=== PATIENT | female | born 1950 | race Caucasian/White ===

== ENCOUNTER 2022-08-29 16:58 | Emergency (ER) | payer MEDICARE, BC, SELFPAY ==
[2022-08-29 17:05] VITALS: BP 162/89; PULSE 70; RESP 16; TEMP 36.7; O2SAT 95; BMI 32.6
--- NOTE | 2022-08-29 17:45 | ED.GENADULT ---
HPI - General Adult General Chief complaint: Hip Injury/Pain Stated complaint: Trouble walking Time Seen by Provider: 08/29/22 17:27 History of Present Illness HPI narrative: 71-year-old woman presenting to the emergency department with complaint of pain down her right leg since last night. She went to the chiropractor this morning and temporarily felt better but pain has escalated tremendously since then. She describes it as a pulling and intense pain goes down her buttock seems to wrap around her hip and to the anterior thigh somewhat to the medial leg and down to the ankle does not touch her toes apparently. No loss of sensation. No recent injury. She was raking in the warm weather maybe 10 days ago but does not recall any particular injury. She does have a history of a back problem of some sort but does not recall details or imaging. Otherwise was seen for osteoarthritis of her right knee. She does not describe pain necessarily with rotation of the hip now in the right side. Pain is terrible when she goes to stand and bears weight. No rash redness or swelling noted. No focal weakness necessarily as she notes that she is able to bear weight. Unable to take aspirin or ibuprofen at least orally as tends to cause stomach burning. Same for naproxen I believe on my questioning. She does note that Dilaudid made her itch like crazy when was given perioperatively. She is desperate for some more immediate relief of pain as I discuss options. Related Data Home Medications Medication Instructions Recorded Confirmed ascorbic acid (vitamin C) 1,000 mg 1 g PO DAILY 02/10/22 08/29/22 tablet biotin 5 mg capsule mg PO DAILY 02/10/22 02/10/22 cholecalciferol (vitamin D3) 50 50 mcg PO DAILY 02/10/22 08/29/22 mcg (2,000 unit) tablet cyanocobalamin (vitamin B-12) 500 5,000 mcg PO DAILY 02/10/22 08/29/22 mcg tablet fluoxetine 20 mg tablet 20 mg PO 02/10/22 02/10/22 glucosamine-chondroitin 500 mg-400 3 cap PO BID 02/10/22 08/29/22 mg capsule hydroxyzine pamoate 25 mg capsule 25 mg PO PRN 02/10/22 02/10/22 naproxen sodium 220 mg capsule 220 mg PO BID 02/10/22 08/29/22 nortriptyline 25 mg capsule mg PO .Bedtime 02/10/22 02/10/22 omeprazole 20 mg capsule,delayed mg PO DAILY 02/10/22 02/10/22 release polyethylene glycol 3350 17 g PO DAILY 02/10/22 02/10/22 gram/dose oral powder losartan 100 mg tablet mg PO 02/13/22 02/13/22 hydrochlorothiazide 25 mg tablet 25 mg PO DAILY 08/29/22 08/29/22 Allergies Allergy/AdvReac Type Severity Reaction Status Date / Time Iodinated Contrast Media Allergy Mild Hives Verified 08/29/22 17:12 metoprolol Allergy Mild Agitated Verified 08/29/22 17:12 aspirin Allergy Verified 08/29/22 17:12 eszopiclone Allergy Verified 08/29/22 17:12 gadodiamide Allergy Verified 08/29/22 17:12 hydrocodone Allergy Verified 08/29/22 17:12 hydromorphone Allergy Verified 08/29/22 17:12 Review of Systems Status of ROS: Reports: 6 or more systems reviewed and unremarkable except as noted in History and below [facility] Medical History Anemia ?D64.9 - Anemia, unspecified (ICD-10) Gastroesophageal reflux disease ?K21.9 - Gastro-esophageal reflux disease without esophagitis (ICD-10) Hypertension ?I10 - Essential (primary) hypertension (ICD-10) Liver problem ?K76.9 - Liver disease, unspecified (ICD-10) Rheumatic fever ?I00 - Rheumatic fever without heart involvement (ICD-10) Surgical History H/O arthroscopy of right knee ?Z98.890 - Other specified postprocedural states (ICD-10) History of cholecystectomy ?Z90.49 - Acquired absence of other specified parts of digestive tract (ICD-10) History of colon resection ?Z90.49 - Acquired absence of other specified parts of digestive tract (ICD-10) History of hysterectomy ?Z90.710 - Acquired absence of both cervix and uterus (ICD-10) S/P left knee arthroscopy (07/08/03) ?Z98.890 - Other specified postprocedural states (ICD-10) Family History Other High blood pressure Throat cancer Social History Smoking Status: Never smoker Do you use any of these nicotine containing products: None Second hand tobacco smoke exposure: No How often do you have a drink containing alcohol: never AUDIT-C Alcohol total score: 0 Non-prescribed substance use: denies use Exam Narrative: Exam Narrative: Pleasant. Breathing without difficulty. Clearly uncomfortable wincing grimacing a little in pain. Hunched over a little bit appears to try not to place as much weight on her right buttock area. Skin is warm and dry without evidence of injury. No rash. No extremity edema. She has good strength to resisted extension and flexion at the right knee and dorsiflexion plantar flexion of the ankle. Sensation intact. Does have some pain to palpation of the right SI joint. No piriformis area pain. Internal external rotation of the hip I do not believe exacerbates pain tremendously but any movement of the extremity I think is what is worsening pain in this case. Positive straight leg raise. Const: Vital Signs, click to edit/add: Vital Signs - 24 hr 08/29/22 17:05 Temperature 98.0 F Pulse Rate [Pulse Oximeter] 70 Respiratory Rate 16 Blood Pressure [Ri ght Upper Arm] 162/89 H Pulse Oximetry 95 Oxygen Delivery Me thod Room Air Documenting provider has reviewed patient's vital signs: yes Course Vital Signs Vital signs: Initial Vital Signs Temperature 98.0 F 08/29/22 17:05 Temperature Source Temporal Artery Scan 08/29/22 17:05 Pulse Rate 70 08/29/22 17:05 Respiratory Rate 16 08/29/22 17:05 Blood Pressure 162/89 H 08/29/22 17:05 Blood Pressure Mean 113 H 08/29/22 17:05 Blood Pressure Position Sitting 08/29/22 17:05 Pulse Oximetry 95 08/29/22 17:05 Oxygen Delivery Method Room Air 08/29/22 17:05 Vital Signs Temperature 98.0 F 08/29/22 17:05 Pulse Rate 70 08/29/22 17:05 Respiratory Rate 16 08/29/22 17:05 Blood Pressure 162/89 H 08/29/22 17:05 Pulse Oximetry 95 08/29/22 17:05 Oxygen Delivery Method Room Air 08/29/22 17:05 Temperature 98.0 F 08/29/22 17:05 Pulse Rate 70 08/29/22 17:05 Respiratory Rate 16 08/29/22 17:05 Blood Pressure 162/89 H 08/29/22 17:05 Pulse Oximetry 95 08/29/22 17:05 Oxygen Delivery Method Room Air 08/29/22 17:05 Medical Decision Making MDM Narrative Medical decision making narrative: This does appear to be some radiculopathy/radiculitis from the low back. Has some inflammation of her right SI joint area I did not test fully though given her degree of discomfort. Presumably has some issue there because of left leg osteoarthritic pain. Does not appear to be piriformis syndrome. We discussed options for treatment. It appears that the suppose it allergies to aspirin and naproxen or more related to stomach irritation; Will be giving a shot of ketorolac. Also wanting more immediate relief a shot of fentanyl. Will monitor for itch though I think less likely. Looks like on review of records that hydrocodone and understandably then hydromorphone are listed as allergies and she noted the latter to cause significant itch. Without trauma, and no MRI available, can defer imaging at this time I think. I am anticipating prednisone and Percocet <del>possibly</del> <del>cyclobenzaprine</del> from [facility]. See patient discharge plan Following injections as above is noting some improvement prior to departure. Discharge Plan Discharge Clinical Impression: Acute radicular low back pain, Sacroiliac pain Patient Disposition: Home w/ Parent or Adult Condition: Stable Additional Instructions: See handout for stretches for radicular low back pain (focus on the stretches/exercises for herniated disc; wait on the sacroiliac pain stretches as I do not think that is the majority of your issue here today) take these handouts for review to your primary care follow-up. I would anticipate being seen in physical therapy. Prednisone and Percocet from [facility]. Sorry it appears that you can't take ibuprofen-type medications. I think this could really help. That said, the prednisone is a potent anti-inflammatory. I would call tomorrow to make an appointment to be seen within a weeks time with your primary care provider. Be seen otherwise for uncontrolled pain, new weakness that does not appear to be related to pain, inability to tolerate your medications. Take the prednisone as 60 mg daily for 2 days, 40 mg daily days 3 through 5, 20 mg daily days 6 through 8. Prescriptions: No Action naproxen sodium 220 mg capsule 220 mg PO BID cholecalciferol (vitamin D3) 50 mcg (2,000 unit) tablet 50 mcg PO DAILY hydroxyzine pamoate 25 mg capsule 25 mg PO PRN glucosamine-chondroitin 500-400 mg capsule 3 cap PO BID polyethylene glycol 3350 17 gram/dose powder PO DAILY omeprazole 20 mg capsule,delayed release(DR/EC) PO DAILY fluoxetine 20 mg tablet 20 mg PO cyanocobalamin (vitamin B-12) 500 mcg tablet 5,000 mcg PO DAILY nortriptyline 25 mg capsule PO .Bedtime Rx Instructions: In addition to 10 mg for total 35 mg hs biotin 5 mg capsule PO DAILY ascorbic acid (vitamin C) 1,000 mg tablet 1 g PO DAILY losartan 100 mg tablet PO hydrochlorothiazide 25 mg tablet 25 mg PO DAILY Follow Up/Referrals: Jessica Osman DO [Primary Care Provider] - Stand Alone Forms: [facility] Info Instructions
[2022-08-29] MEDS: fentaNYL 100 MCG/2 ML inj 50 MCG IM (18:07)
[2022-08-29] MEDS: KETOROLAC 60 MG/2 ML inj 45 MG IM (18:08)
== END 2022-08-29 18:38 | disposition home or self-care (01) ==
LOC: ED 18:17
PROVIDERS: Emergency Provider Family Medicine; PCP Family Medicine
DX: M54.16 Radiculopathy, lumbar region (principal); M53.3 Sacrococcygeal disorders, not elsewhere classified
CPT/HCPCS: 96372; 99283; 99284; J1885; J3010

== ENCOUNTER 2022-09-05 14:58 | Outpatient (CLI) | payer MEDICARE, BC, SELFPAY | END 2022-09-05 14:59 | disposition home or self-care (01) | LOC: INJ CL 14:58 | PROVIDERS: PCP Family Medicine; Visit Provider Family Medicine | DX: M54.16 Radiculopathy, lumbar region (principal); M51.26 Other intervertebral disc displacement, lumbar region | CPT/HCPCS: 64483; J1100; Q9966 ==

== ENCOUNTER 2022-09-10 07:23 | Emergency (ER) | payer MEDICARE, BC, SELFPAY ==
[2022-09-10 07:25] VITALS: BP 187/93; PULSE 67; RESP 18; TEMP 36.6; O2SAT 100; BMI 32.6
--- NOTE | 2022-09-10 07:36 | ED.GENADULT ---
HPI - General Adult General Chief complaint: Back Injury/Pain Stated complaint: Hip Pain Time Seen by Provider: 09/10/22 07:25 History of Present Illness HPI narrative: Patient is a 71 white female who had a epidural steroid injection couple days ago Dr. Lai hathaway. She tweaked her back yesterday and has had increasing pain and pain down her right leg. She reports she has an L4-5 lateral disc to the right. No bowel or bladder changes fever chills perineal numbness she is able to walk. Her back is a slightly flexed position she has mild tenderness or low back to the right side. No fevers chills weight loss. Related Data Home Medications Medication Instructions Recorded Confirmed ascorbic acid (vitamin C) 1,000 mg 1 g PO DAILY 02/10/22 09/06/22 tablet biotin 5 mg capsule mg PO DAILY 02/10/22 09/06/22 cholecalciferol (vitamin D3) 50 50 mcg PO DAILY 02/10/22 09/06/22 mcg (2,000 unit) tablet cyanocobalamin (vitamin B-12) 500 5,000 mcg PO DAILY 02/10/22 09/06/22 mcg tablet fluoxetine 20 mg tablet 20 mg PO 02/10/22 09/06/22 glucosamine-chondroitin 500 mg-400 3 cap PO BID 02/10/22 09/06/22 mg capsule hydroxyzine pamoate 25 mg capsule 25 mg PO PRN 02/10/22 09/06/22 naproxen sodium 220 mg capsule 220 mg PO BID 02/10/22 09/06/22 nortriptyline 25 mg capsule mg PO .Bedtime 02/10/22 09/06/22 omeprazole 20 mg capsule,delayed mg PO DAILY 02/10/22 09/06/22 release polyethylene glycol 3350 17 g PO DAILY 02/10/22 09/06/22 gram/dose oral powder losartan 100 mg tablet mg PO 02/13/22 09/06/22 hydrochlorothiazide 25 mg tablet 25 mg PO DAILY 08/29/22 09/06/22 fluoxetine 10 mg capsule mg PO 09/06/22 09/06/22 hydroxyzine HCl 10 mg tablet 10 mg PO BID 09/06/22 09/06/22 oxycodone 5 mg tablet mg PO 09/06/22 09/06/22 Allergies Allergy/AdvReac Type Severity Reaction Status Date / Time Iodinated Contrast Media Allergy Mild Hives Verified 09/06/22 11:26 metoprolol Allergy Mild Agitated Verified 08/29/22 17:12 aspirin Allergy Verified 09/06/22 11:26 eszopiclone Allergy Verified 09/06/22 11:26 gadodiamide Allergy Verified 09/06/22 11:26 hydrocodone Allergy Verified 09/06/22 11:26 hydromorphone Allergy Verified 09/06/22 11:26 Review of Systems Status of ROS: Reports: 6 or more systems reviewed and unremarkable except as noted in History and below [facility] Medical History Gastroesophageal reflux disease ?K21.9 - Gastro-esophageal reflux disease without esophagitis (ICD-10) Anemia ?D64.9 - Anemia, unspecified (ICD-10) Liver problem ?K76.9 - Liver disease, unspecified (ICD-10) Rheumatic fever ?I00 - Rheumatic fever without heart involvement (ICD-10) Hypertension ?I10 - Essential (primary) hypertension (ICD-10) Surgical History H/O arthroscopy of right knee ?Z98.890 - Other specified postprocedural states (ICD-10) History of colon resection ?Z90.49 - Acquired absence of other specified parts of digestive tract (ICD-10) History of hysterectomy ?Z90.710 - Acquired absence of both cervix and uterus (ICD-10) History of cholecystectomy ?Z90.49 - Acquired absence of other specified parts of digestive tract (ICD-10) S/P left knee arthroscopy (07/08/03) ?Z98.890 - Other specified postprocedural states (ICD-10) Family History Other High blood pressure Throat cancer Social History Smoking Status: Never smoker Do you use any of these nicotine containing products: None Second hand tobacco smoke exposure: No How often do you have a drink containing alcohol: never AUDIT-C Alcohol total score: 0 Non-prescribed substance use: denies use Exam Narrative: Exam Narrative: Objective: Vital signs are slightly elevated blood pressure Alert orient x3 Slightly flexed position in the back Negative straight leg raise bilaterally good strength in lower extremities normal sensation. Const: Vital Signs, click to edit/add: Vital Signs - 24 hr 09/10/22 07:25 Temperature 97.8 F Pulse Rate [Right Pulse Oximeter] 67 Respiratory Rate 18 Blood Pressure [Ri ght Upper Arm] 187/93 H Pulse Oximetry 100 Oxygen Delivery Me thod Room Air Course Vital Signs Vital signs: Initial Vital Signs Temperature 97.8 F 09/10/22 07:25 Temperature Source Temporal Artery Scan 09/10/22 07:25 Pulse Rate 67 09/10/22 07:25 Respiratory Rate 18 09/10/22 07:25 Blood Pressure 187/93 H 09/10/22 07:25 Blood Pressure Mean 124 H 09/10/22 07:25 Blood Pressure Position Sitting 09/10/22 07:25 Pulse Oximetry 100 09/10/22 07:25 Oxygen Delivery Method Room Air 09/10/22 07:25 Vital Signs Temperature 97.8 F 09/10/22 07:25 Pulse Rate 67 09/10/22 07:25 Respiratory Rate 18 09/10/22 07:25 Blood Pressure 187/93 H 09/10/22 07:25 Pulse Oximetry 100 09/10/22 07:25 Oxygen Delivery Method Room Air 09/10/22 07:25 Temperature 97.8 F 09/10/22 07:25 Pulse Rate 67 09/10/22 07:25 Respiratory Rate 18 09/10/22 07:25 Blood Pressure 187/93 H 09/10/22 07:25 Pulse Oximetry 100 09/10/22 07:25 Oxygen Delivery Method Room Air 09/10/22 07:25 Medical Decision Making [facility] Narrative Medical decision making narrative: Patient has had a recent epidural steroid injections some increased flare in symptoms. She has had L4-5 lateral disc by her report. I think an injection of pain medication at this time would be appropriate, will give her morphine 7.5 mg IM, she has tolerated morphine well in the past. Would recommend she allow couple days for the steroid to kick in and see if it continues to help. Would update Dr. Hoyt tomorrow the next day as needed if not improving. She can return to the ED problems or concerns. Light activity today, ice to the back. Discharge Plan Discharge Clinical Impression: Acute radicular low back pain Patient Disposition: Home w/ Parent or Adult Condition: Stable Additional Instructions: Light activity, ice to the back, gentle range of motion of the back. Update Dr. carl tomorrow if still having difficulty. Hopefully the steroid shot will kick in and start helping over the next 24-48 hours. Activity Level: Light activity Discharge Diet: Regular Prescriptions: No Action naproxen sodium 220 mg capsule 220 mg PO BID cholecalciferol (vitamin D3) 50 mcg (2,000 unit) tablet 50 mcg PO DAILY hydroxyzine pamoate 25 mg capsule 25 mg PO PRN glucosamine-chondroitin 500-400 mg capsule 3 cap PO BID polyethylene glycol 3350 17 gram/dose powder PO DAILY omeprazole 20 mg capsule,delayed release(DR/EC) PO DAILY fluoxetine 20 mg tablet 20 mg PO cyanocobalamin (vitamin B-12) 500 mcg tablet 5,000 mcg PO DAILY nortriptyline 25 mg capsule PO .Bedtime Rx Instructions: In addition to 10 mg for total 35 mg hs biotin 5 mg capsule PO DAILY ascorbic acid (vitamin C) 1,000 mg tablet 1 g PO DAILY losartan 100 mg tablet PO oxycodone 5 mg tablet PO hydroxyzine HCl 10 mg tablet 10 mg PO BID fluoxetine 10 mg capsule PO hydrochlorothiazide 25 mg tablet 25 mg PO DAILY Follow Up/Referrals: Jessica Osman DO [Primary Care Provider] - Stand Alone Forms: [facility] Info Instructions
[2022-09-10] MEDS: MORPHINE 10 MG/ML inj 7.5 MG IM (07:56)
== END 2022-09-10 08:34 | disposition home or self-care (01) ==
LOC: ED 07:58
PROVIDERS: Emergency Provider Family Medicine; PCP Family Medicine
DX: M54.16 Radiculopathy, lumbar region (principal)
CPT/HCPCS: 96372; 99283; J2270

== ENCOUNTER 2022-09-11 08:46 | Emergency (ER) | payer MEDICARE, BC, SELFPAY ==
[2022-09-11 08:56] VITALS: BP 176/100; PULSE 71; RESP 18; TEMP 36.4; O2SAT 99; BMI 32.6
--- NOTE | 2022-09-11 09:07 | ED_ITS ---
HPI - Back Pain/Injury General Time Seen by Provider: 09:07 Date Seen: 09/11/22 Chief Complaint: Back Injury/Pain Stated Complaint: pain from shot in spine Time Seen by Provider: 09/11/22 09:07 Source: patient, RN notes reviewed and old records reviewed Mode of arrival: ambulatory Limitations: no limitations History of Present Illness HPI Narrative: Patient is a 71-year-old female that did ambulate into the ED of her own accord with complaint of right radicular back pain. She had an injection reportedly on right L4-5 here on [address] Merritt. She was in yesterday to the ER. Pain escalated over the weekend. She is having pain that radiates right through the right groin and down the right from the leg ache, stops about the ankle area. No bowel or bladder changes, no fever, no numbness tingling. She did get a shot of morphine yesterday. She has oxycodone at home. She is tearful, states she cannot find a position of comfort, hurts when she is lying sitting or standing. She states she has not slept for couple of days now. She is tearful and distraught. She did call [facility] in attempt to talk to them this morning, was advised to come here by the triage nurse. MD elicited complaint: back pain Related Data Home Medications Medication Instructions Recorded Confirmed ascorbic acid (vitamin C) 1,000 mg 1 g PO DAILY 02/10/22 09/06/22 tablet biotin 5 mg capsule mg PO DAILY 02/10/22 09/06/22 cholecalciferol (vitamin D3) 50 50 mcg PO DAILY 02/10/22 09/06/22 mcg (2,000 unit) tablet cyanocobalamin (vitamin B-12) 500 5,000 mcg PO DAILY 02/10/22 09/06/22 mcg tablet fluoxetine 20 mg tablet 20 mg PO 02/10/22 09/06/22 glucosamine-chondroitin 500 mg-400 3 cap PO BID 02/10/22 09/06/22 mg capsule hydroxyzine pamoate 25 mg capsule 25 mg PO PRN 02/10/22 09/06/22 naproxen sodium 220 mg capsule 220 mg PO BID 02/10/22 09/06/22 nortriptyline 25 mg capsule mg PO .Bedtime 02/10/22 09/06/22 omeprazole 20 mg capsule,delayed mg PO DAILY 02/10/22 09/06/22 release polyethylene glycol 3350 17 g PO DAILY 02/10/22 09/06/22 gram/dose oral powder losartan 100 mg tablet mg PO 02/13/22 09/06/22 hydrochlorothiazide 25 mg tablet 25 mg PO DAILY 08/29/22 09/06/22 fluoxetine 10 mg capsule mg PO 09/06/22 09/06/22 hydroxyzine HCl 10 mg tablet 10 mg PO BID 09/06/22 09/06/22 oxycodone 5 mg tablet mg PO 09/06/22 09/06/22 Previous Rx's Medication Instructions Recorded oxycodone 5 mg tablet 5 mg PO Q6H PRN pain #6 tabs 09/11/22 prednisone 20 mg tablet 20 mg PO BID #10 tabs 09/11/22 Allergies Allergy/AdvReac Type Severity Reaction Status Date / Time Iodinated Contrast Media Allergy Mild Hives Verified 09/06/22 11:26 metoprolol Allergy Mild Agitated Verified 08/29/22 17:12 aspirin Allergy Verified 09/06/22 11:26 eszopiclone Allergy Verified 09/06/22 11:26 gadodiamide Allergy Verified 09/06/22 11:26 hydrocodone Allergy Verified 09/06/22 11:26 hydromorphone Allergy Verified 09/06/22 11:26 Review of Systems Narrative: As per HPI [facility] Medical History Gastroesophageal reflux disease ?K21.9 - Gastro-esophageal reflux disease without esophagitis (ICD-10) Anemia ?D64.9 - Anemia, unspecified (ICD-10) Liver problem ?K76.9 - Liver disease, unspecified (ICD-10) Rheumatic fever ?I00 - Rheumatic fever without heart involvement (ICD-10) Hypertension ?I10 - Essential (primary) hypertension (ICD-10) Surgical History H/O arthroscopy of right knee ?Z98.890 - Other specified postprocedural states (ICD-10) History of colon resection ?Z90.49 - Acquired absence of other specified parts of digestive tract (ICD- 10) History of hysterectomy ?Z90.710 - Acquired absence of both cervix and uterus (ICD-10) History of cholecystectomy ?Z90.49 - Acquired absence of other specified parts of digestive tract (ICD- 10) S/P left knee arthroscopy (07/08/03) ?Z98.890 - Other specified postprocedural states (ICD-10) Family History Other High blood pressure Throat cancer Social History Smoking Status: Never smoker Do you use any of these nicotine containing products: None Second hand tobacco smoke exposure: No How often do you have a drink containing alcohol: never AUDIT-C Alcohol total score: 0 Non-prescribed substance use: denies use service: No Exam Const: Vital Signs, click to edit/add: Vital Signs - 24 hr 09/11/22 08:56 09/11/22 10:51 Temperature 97.6 F Pulse Rate [Right Pulse Oximeter] 71 69 Respiratory Rate 18 16 Blood Pressure [Ri ght Upper Arm] 176/100 H 136/77 Pulse Oximetry 99 96 Oxygen Delivery Me thod Room Air Room Air 71-year-old female tearful, looks to be uncomfortable sitting on the edge of the ER bed. She has no midline tenderness over spine. Inspection of the back reveals no erythema. There is point tenderness along the right lower paraspinal area. She does not have a definitive straight leg raise on the right side but does state it hurts a bit more. Definitely negative straight leg raise on the left. She has no loss of sensation, skin is warm with good pulses distally. I cannot get DTRs on either side. Strength is 5/5 and symmetric. She is able to stand up at the end of the interaction, stating she needs to stand up. And moves toward the counter to lean forward on it. Documenting provider has reviewed patient's vital signs: yes Course Course Hospital Course: In discussion, patient may have been on steroids prior to her injection from her primary care provider. We will attempt to talk to Dr. Merritt regarding her situation. I do not feel that she needs an emergent MRI based on her clinical exam but will review with Dr. Merritt in case he might want to order 1 for her. My initial thought is to upregulate pain management and consider subsequent course of oral steroids. Will wait to talk to Dr. Merritt. Reevaluation(s) Reevaluation #1: Have just gotten off the phone with Dr. Merritt, he unfortunately thinks that this patient will need surgery. She has a lateral L4 5 disc herniation. He did transforaminal injection, states there was nothing abnormal. The neurosurgeon from [facility] happens to be in town at [place] at the orthopedic clinic today. We will attempt to try to contact them. In the meantime, did ask patient if the morphine helped her yesterday. It did give her some pain relief. Am going to give her an injection of 10 mg IM morphine now while we await a call back. Time: 09:54 Reevaluation #2: Reviewed with patient that unfortunately we have not been able to secure of formal disposition for her. We did work with the [facility], the neurosurgeon there today could not see her. They recommended she be seen at the spine clinic but when we called there, they needed a referral either from Dr. Merritt or her primary. I have no way to make this happen. I did page her primary Dr. Larson, this was at 1017am and haven't heard back yet. There is nothing emergent that requires intervention at this time. I do understand she has pain but there is no neurologic changes of bowel bladder or motor. She does understand that. She states she is out of pain medicines. Reviewed with her that I could give her a few tablets along with prednisone well they attempt to work this out and get her scheduled with our neurosurgeon in follow-up. She will need to work through her primary Dr. Larson. She understands. The m orphine has helped her pain, she is lying comfortably. Have reviewed with her that further pain management does need to happen with her primary care provider. Did review neurologic changes that should warrant emergent follow-up. Time: 11:14 Vital Signs Vital signs: Initial Vital Signs Temperature 97.6 F 09/11/22 08:56 Temperature Source Temporal Artery Scan 09/11/22 08:56 Pulse Rate 71 09/11/22 08:56 Respiratory Rate 18 09/11/22 08:56 Blood Pressure 176/100 H 09/11/22 08:56 Blood Pressure Mean 125 H 09/11/22 08:56 Blood Pressure Position Sitting 09/11/22 08:56 Pulse Oximetry 99 09/11/22 08:56 Oxygen Delivery Method Room Air 09/11/22 08:56 Vital Signs Temperature 97.6 F 09/11/22 08:56 Pulse Rate 71 09/11/22 08:56 Respiratory Rate 18 09/11/22 08:56 Blood Pressure 176/100 H 09/11/22 08:56 Pulse Oximetry 99 09/11/22 08:56 Oxygen Delivery Method Room Air 09/11/22 08:56 Temperature 97.6 F 09/11/22 08:56 Pulse Rate 69 09/11/22 10:51 Respiratory Rate 16 09/11/22 10:51 Blood Pressure 136/77 09/11/22 10:51 Pulse Oximetry 96 09/11/22 10:51 Oxygen Delivery Method Room Air 09/11/22 10:51 Critical Care Time Critical Care Time Critical Care Time: No Discharge Plan Discharge Clinical Impression: Acute radicular low back pain Patient Disposition: Home, Self-Care Condition: Unchanged Instructions: Lumbar Radiculopathy (ED) Activity Level: Activity as Tolerated Prescriptions: New prednisone 20 mg tablet 20 mg PO BID Qty: 10 0RF oxycodone 5 mg tablet 5 mg PO Q6H PRN (Reason: pain) Qty: 6 0RF No Action naproxen sodium 220 mg capsule 220 mg PO BID cholecalciferol (vitamin D3) 50 mcg (2,000 unit) tablet 50 mcg PO DAILY hydroxyzine pamoate 25 mg capsule 25 mg PO PRN glucosamine-chondroitin 500-400 mg capsule 3 cap PO BID polyethylene glycol 3350 17 gram/dose powder PO DAILY omeprazole 20 mg capsule,delayed release(DR/EC) PO DAILY fluoxetine 20 mg tablet 20 mg PO cyanocobalamin (vitamin B-12) 500 mcg tablet 5,000 mcg PO DAILY nortriptyline 25 mg capsule PO .Bedtime Rx Instructions: In addition to 10 mg for total 35 mg hs biotin 5 mg capsule PO DAILY ascorbic acid (vitamin C) 1,000 mg tablet 1 g PO DAILY losartan 100 mg tablet PO oxycodone 5 mg tablet PO hydroxyzine HCl 10 mg tablet 10 mg PO BID fluoxetine 10 mg capsule PO hydrochlorothiazide 25 mg tablet 25 mg PO DAILY Follow Up/Referrals: Jessica Osman DO [Primary Care Provider] - Stand Alone [facility]: [facility]
[2022-09-11] MEDS: MORPHINE 10 MG/ML inj IM (10:00)
--- NOTE | 2022-09-11 10:38 | PC.NURSE ---
Dr. Merritt paged at [phone]. Spoke with Dr[address] Cordero. Dr. Larson paged at [phone]. Waiting for call back on plan.
[2022-09-11 10:51] VITALS: BP 136/77; PULSE 69; RESP 16; O2SAT 96
== END 2022-09-11 11:32 | disposition home or self-care (01) ==
PROVIDERS: Emergency Provider Family Medicine; PCP Family Medicine
DX: M54.16 Radiculopathy, lumbar region (principal)
CPT/HCPCS: 96372; 99283; 99284; J2270

== ENCOUNTER 2022-12-01 13:45 | Outpatient (RCR) | payer MEDICARE, BC, SELFPAY | END 2023-03-31 23:59 | disposition home or self-care (01) | PROVIDERS: PCP Family Medicine; Visit Provider Nurse Practitioner Family | DX: Z98.890 Other specified postprocedural states (principal); Z51.89 Encounter for other specified aftercare | CPT/HCPCS: 97110; 97161 ==

== ENCOUNTER 2022-12-25 10:51 | Outpatient (RCR) | payer MEDICARE, BC, SELFPAY ==
--- NOTE | 2022-12-26 08:42 | PT.OPEX ---
PT [place] Outpatient Eval PT [facility] Outpatient Eval Start: 12/25/22 15:27 Freq: Status: Active Protocol: Document 12/25/22 15:46 BJN (Rec: 12/25/22 16:21 NILDA [id number]) E-signed By Michelle Perez DPT Physical Therapy Outpatient Evaluation Insurance Information Recert Due Date 03/25/23 Insurance Name Medicare B,[employer] Medical Diagnosis L knee OA L TKA 01/02/23 Treating Diagnosis L knee pain, impaired L Knee ROM, L knee/LE weakness, limping/antalgic gait, limited tolerance for extended standing/walking Referring MD [place] Subjective Subjective Patient reports chronic L knee pain for years leading up to L TKA scheduled for 01/02/23. L knee pain rated 8/10 with activity. Patient states she is lacking L knee ext and has limited flexion secondary to pain. Extended standing/ walking are limited by pain. She has not been using an AD, but states she has been limping when she walks. She lives alone in a rambler home, 3 stairs to enter with bilateral railings. Patient states she was planning to have her sister stay with her after surgery but her sister is no longer able to help out due to her own medical issues. Patient is concerned about d /c back home alone after surgery. She is planning to talk with Ayla from surgery dept at the hospital and possibly a hospital social sciences professor to review her options. Date of Last Physician Visit 10/25/22 Date of Surgery (If applicable) 01/02/23 Current Work Status Retired Preferred Name Renay Assessment Assessment/Impression Patient is a 72 year old female seen in PT today for pre-op session to provide education/information on upcoming TKA surgery, safety information/HO, equipment instruction including use of FWW, and instruction in TKA exercises. She reports living alone in a rambler home, 3 stairs with 2 railings to enter. Once inside, she can stay on the main level. Patient has a high rise toilet seat, walk in shower with a built in shower seat. She will need a FWW issued at hospital d/c. She was planning to have her sister stay with her after surgery but her sister is no longer available to assist. Patient has some concerns regarding d/ c home alone after surgery. She will try to talk with Ayla from the surgery dept at the hospital or maybe a hospital social sciences professor. Answered patient questions as able this session. Handouts issued for exercises. Exercises demonstrated. Patient to perform them leading up to surgery. Reviewed PT/OT plan during hospital stay and patient is scheduled for OP PT post op. Patient would benefit from skilled PT for pain/sx management, improved knee ROM, improved knee/LE mobility/ strength, improved gait, balance/proprioception training, and establishment of HEP. Plan of Care Rehabilitation Potential Good Physical Therapy Goals 1. Patient will be educated in TKA pre/post-op safety, mobility, and exercises with HOs provided within one visit with patient returning to PT for post op treatment after L TKA surgery on 06/13/21. PT goals will be updated to TKA rehab goals when patient returns post op. Coordination/Communication With Referral Source Treatment Plan/Direct Interventions Gait Training,Manual Therapy, Therapeutic Exercises Frequency/Duration 2x/week post TKA, one pre-op session Patient Will Be Discharged From Therapy Completion of LTG(s),Skills Plateau,Independent w/HEP, Independently Progressing Evaluation Billing Untimed Code Treatment Minutes 42 Complexity Moderate Certification Information Initial Certification Date 12/25/22 Ending Certification Date 03/25/23 Provider Signature Shows Agreement With POC & Medical Necessity Physician Signature & Date Requested Please Sign/Date Here Physician Comment/Change : Physician NPI Number #
== END 2023-04-24 23:59 | disposition home or self-care (01) ==
PROVIDERS: PCP Family Medicine; Visit Provider Orthopaedic Surgery
DX: M17.12 Unilateral primary osteoarthritis, left knee (principal); Z96.652 Presence of left artificial knee joint; Z51.89 Encounter for other specified aftercare; R26.89 Other abnormalities of gait and mobility; R53.1 Weakness
CPT/HCPCS: 97162

== ENCOUNTER 2023-09-13 08:19 | Day surgery (SDC) | payer MEDICARE, BC, SELFPAY ==
[2023-09-13] VITALS (22 sets, daily range): BP systolic 115–214; BP diastolic 65–114; PULSE 61–82; RESP 12–24; TEMP 35.9–37.3; O2SAT 93–100; BMI 34.2
--- OUTSIDE RECORDS SUMMARY | 2023-09-13 08:21 | XMS_ITS | Clinical Summary ---
Author Name [facility] Address [address] [place] [address] Care Team Providers Care Residential Nurse Name Role Phone Needs Pcp, Assignment Primary Care Provider [phone] Source Comments You are receiving this document as you are listed as the primary care provider,follow-up provider, or the patient has been referred to you for consultation.This is in compliance with the Medicare and[facility] EHR Incentive Program,which states Providers who transition their patient to another setting of careor provider of care or refers their patient to another provider of care shouldprovide summary care record for each transition of care or referral. Critical access hospital Allergies Active Allergy Reactions Criticality Noted Date Comments Aspirin 02/20/2019 [place] stomach Hydrocodone-Acetaminophen Hives High 02/20/2019 Medications Medication Sig Dispensed Refills Start Date End Date Status lisinopril (AKA ZESTRIL) 10 MG tablet Indications: HYPERTENSION 05/31/2010 Active nortriptyline (PAMELOR) 25 MG capsule 03/07/2021 Active Active Problems No known active problems Family History Medical History Relation Name Comments Cataract Sister Glaucoma Negative Family History Macular Degeneration Negative Family History Retinal Detachment Negative Family History Relation Name Status Comments Sister Social History Tobacco Use Types Packs/Day Years Used Date Smoking Tobacco: Never Assessed Sex and Gender Information Value Date Recorded Sex Assigned at Female 04/15/2021 7:39 PM [employer] Gender Identity Female 04/15/2021 7:39 PM [employer] Sexual Orientation Straight 04/15/2021 7: 39 PM [employer] Plan of Treatment Health Maintenance Due Date Last Done Comments Colon Cancer Screening Plan Due 1950 Hep C Screening (Preventive Services) 1950 Medicare Annual Wellness Visit 1950 Mammogram 1950 Cholesterol 1994 Dexa 2014 COVID-19 Vaccine ( season) 2023 03/24/2021, 07/30/2020, 07/09/2020 Influenza (Season Ended) 2024 022, 03/17/2021, 03/09/2020, Additional history exists DTaP/Tdap/Td (3 - Tdap) 08/29/2028 08/29/2018, 06/24 Pneumococcal 65+ Yrs Completed 12/08/2016, 11/30/19 16 Zoster/Shingles Completed 02/07/2019, 08/06, 11/02/2011 HepA Aged Out No longer eligi ble based on patient's age to complete this topic HepB Aged Out No longer eligi ble based on patient's age to complete this topic Hib Aged Out No longer eligi ble based on patient's age to complete this topic IPV (Polio) Aged Out No longer eligi ble based on patient's age to complete this topic MCV4 Aged Out No longer eligi ble based on patient's age to complete this topic Care Teams Residential Nurse Relationship Specialty Start Date End Date Needs Pcp, [place] [address] PCP - General 01/27/21
--- OUTSIDE RECORDS SUMMARY | 2023-09-13 08:21 | XMS_ITS | Data Portability ---
Author Name Unknown Address [address] [place] [address] Phone [phone] Organization [facility], [facility] Address [address] [place] [address] Care Team Providers Care Advertising Director Name Role Phone [facility] Primary Care Provider Assessment No assessment recorded. Plan of Treatment Reminders Order Date Submit Date Provider Last Modified By Organization Details Last Modified Time Details Appointments None recorded. Lab urinalysis, dipstick 2021 022 [email or web address] [facility], [address] [place], [address], 16:39:22 urinalysis, dipstick [email or web address] [facility], [address], [address], [place], [address], 09:39:39 Referral None recorded. Procedures urodynamic testing, complex (PROC) 2021 022 [email or web address] Not available 14:14:11 Surgeries None recorded. Imaging None recorded. Medication Orders None recorded. Patient TargetsNo targets recorded. Patient InstructionsNo instructions recorded. Reason for Referral None Reported. Results Created Date Observation Date Name Description Value Unit Range Abnormal Flag LastModifiedBy Organization Detail LastModifiedTime 03/17/20 22 03/17/2022 urina lysis , dipst ick Color-Status Yellow Not Available [address], [place], [address], 03/17/2022 09:39:14 03/17/20 22 03/17/2022 urina lysis , dipst ick Clarity-Stat us Slight ly Cloudy Not Available [address], [place], [address], 03/17/2022 09:39:14 03/17/20 22 03/17/2022 urina lysis , dipst ick pH-Status 7.0 Not Available [address], [place], [address], 03/17/2022 09:39:14 03/17/20 22 03/17/2022 urina lysis , dipst ick Leuko-Status Small Not Available [address], [place], [address], 03/17/2022 09:39:14 04/10/20 22 04/10/2022 urina lysis , dipst ick Color-Status Yellow Not Available [facility] [address], [place], [address], 04/10/2022 16:38:24 04/10/20 22 04/10/2022 urina lysis , dipst ick Clarity-Stat us Clear Not Available [facility] [address], [place], [address], 04/10/2022 16:38:24 04/10/20 22 04/10/2022 urina lysis , dipst ick Glucose-Stat us Negati ve Not Available [facility] [address], [place], [address], 04/10/2022 16:38:24 04/10/20 22 04/10/2022 urina lysis , dipst ick Bilirubin-St atus Negati ve Not Available [facility] [address], [place], [address], 04/10/2022 16:38:24 04/10/20 22 04/10/2022 urina lysis , dipst ick Ketones-Stat us Negati ve Not Available [facility] [address], [place], [address], 04/10/2022 16:38:24 04/10/20 22 04/10/2022 urina lysis , dipst ick Sp Plummer-Stat us 1.015 Not Available [facility] [address], [place], [address], 04/10/2022 16:38:24 04/10/20 22 04/10/2022 urina lysis , dipst ick pH-Status 6.5 Not Available [facility] [address], [place], [address], 04/10/2022 16:38:24 04/10/20 22 04/10/2022 urina lysis , dipst ick Protein-Stat us 5.0 Not Available [facility] [address], [place], [address], 04/10/2022 16:38:24 04/10/20 22 04/10/2022 urina lysis , dipst ick Urobilinogen -Status 0.2 Not Available [facility] [address], [place], [address], 04/10/2022 16:38:24 04/10/20 22 04/10/2022 urina lysis , dipst ick Nitrates-Sta tus negati ve Not Available [facility] [address], [place], [address], 04/10/2022 16:38:24 04/10/20 22 04/10/2022 urina lysis , dipst ick Blood-Status Negati ve Not Available [facility] [address], [place], [address], 04/10/2022 16:38:24 04/10/20 22 04/10/2022 urina lysis , dipst ick Leuko-Status Small Not Available [facility] [address], [place], [address], 04/10/2022 16:38:24 04/10/20 22 04/10/2022 urina lysis , dipst ick Specimen Type Voided Not Available [facility] [address], [place], [address], 04/10/2022 16:38:24 03/21/20 22 03/17/2022 bladd er scan (PROC ) No observ ation record ed. BARCODE Not Available 03/21/2022 09:48:52 Result Notes None recorded. Problems Name Status Onset Date Resolution Date Notes Provider Name and Address Organization Details Recorded Time Recurrent urinary tract infection Active 03/17/20 22 Tanmay Sauceda MD [address] [place] [address], [address], [facility] 03/17/2022 10:08:22 Mixed urinary incontinence Active 03/17/20 22 Tanmay Sauceda MD [address] [place] [address], [address], [facility] 03/17/2022 10:08:29 Urge incontinence of urine Active 07/29/19 23 Tanmay Sauceda MD [address] [place] [address],[address], [address], [facility] 07/28/2022 14:59:17 Problem Notes None recorded. Procedures Surgical History Date Name Laterality Status Provider Name and Address Organization Details Recorded Time 04/10/20 Urodynamic Studies completed Ayla fong [facility] 04/12/2022 15:01:32 03/17/20 22 Cystoscopy- female completed Tanmay Sauceda MD [address], [place], [address], [facility] 03/17/2022 10:08:17 03/17/20 22 Bladder Scan completed Summer Esther fong [facility] 03/17/2022 09:37:49 03/17/20 17 Colonoscopy completed Summer fong [facility] 03/17/2022 09:34:49 [facility] 09:34:57 Imaging Results Imaging Date Name Status LastModified by Organiz ation Details LastModified Time 03/17/2022 bladder scan (PROC) completed BARCODE Information not available 03/21/2022 09:48:52 Procedure Notes None recorded. Medical Equipment None Reported. Allergies Allergen ID Allergen Name Allergen Category Reaction Reaction Severity Criticality Documentation Date Start Date Code Code System Note Provider Name and Address Organization Details Recorded Time 301646 gadodiami de medicatio n rash Not available Not available 03/17/2022 91668 RxNorm Summer Esther fong [facility] 2 09:22:38 582750 Dilaudid medicatio n itching Not available Not available 03/17/2022 90013 3 RxNorm Summer Mongesony fong [facility] 2 09:23:06 136442 Lunesta medicatio n cough Not available Not available 03/17/2022 62759 4 RxNorm Summer Esther fong [facility] 2 09:23:17 086843 metoprolo l Not available other Not available Not available 03/17/2022 6918 RxNorm Fatig ue/sw eatin g Summer fong [facility] 2 09:24:47 880283 acetamino phen / hydrocodo ne medicatio n itching Not available Not available 03/17/2022 03392 2 RxNorm Summer Esther fong [facility] 2 09:25:16 Medications Name Sig Start Date Stop Date Status Note LastModified by Organization Details LastModified Time losartan 50 mg tablet 03/17 completed Not Available Not Available Not Available azithromyci n 250 mg tablet 03/17 completed Not Available Not Available Not Available ciprofloxac in 250 mg tablet TAKE 1 TABLET BY MOUTH TWICE DAILY FOR 7 DAYS 03/17 completed Not Available Not Available Not Available sulfamethox azole 800 mg-trimetho prim 160 mg tablet TAKE 1 TABLET BY MOUTH TWICE DAILY FOR 5 DAYS 03/17 completed Not Available Not Available Not Available nortriptyli ne 25 mg capsule active Not Available Not Available Not Available benzonatate 100 mg capsule TAKE 1 CAPSULE BY MOUTH THREE TIMES DAILY NEEDED FOR COUGH 07/28 completed Not Available Not Available Not Available cephalexin 500 mg capsule TAKE 1 CAPSULE BY MOUTH TWICE DAILY FOR 7 DAYS 03/17 completed Not Available Not Available Not Available fluoxetine 10 mg capsule TAKE 3 CAPSULES BY MOUTH IN THE MORNING active Not Available Not Available No t Available omeprazole 20 mg capsule,del ayed release active Not Available Not Available Not Available hydrochloro thiazide 25 mg tablet TAKE 1 TABLET BY MOUTH ONCE DAILY active Not Available Not Available No t Available hydroxyzine HCl 10 mg tablet active Not Available Not Available Not Available losartan 100 mg tablet active Not Available Not Available Not Available doxycycline hyclate 100 mg tablet TAKE 1 TABLET BY MOUTH TWICE DAILY FOR 5 DAYS 03/17 completed Not Available Not Available Not Available hydrochloro thiazide 12.5 mg tablet TAKE 1 TABLET BY MOUTH ONCE DAILY 03/17 completed Not Available Not Available Not Available Paxlovid 150 mg-100 mg tablets in a dose pack (Renal Dose) PLEASE SEE ATTACHED FOR DETAILED DIRECTION S 03/17 completed Not Available Not Available Not Available Vitals Date Recorded Body height Body mass index (BMI) Body weight Provider Name and Address Organization Details Last Updated DateTime 03/17/2022 162.56 cm 29.2 kg/m2 60862.7 g [place] [facility] 03/17/2022 09:32:27 Date Recorded Body height Provider Name an d Address Organization Details Last Updated DateTime 04/10/2022 162.56 cm DOMI Sheth [facility] 04/12/2022 14:49:58 Date Recorded Body height Body mass index (BMI) Body weight Provider Name and Address Organization Details Last Updated DateTime 07/28/2022 162.56 cm 29.2 kg/m2 17385.7 g Sadie Saleem fong [facility] 07/28/2022 14:35:57 Social History Question Answer Notes LastModified by Organizat ion Details LastModified Time Tobacco Smoking Status Never Smoker Summer fong [facility] 03/17/2022 09:27:56 What Was The Date Of Your Most Recent Tobacco Screening? 07/28/2022 [email or web address] Information not available 07/28/2022 Do You Or Have You Ever Used Any Other Forms Of Tobacco Or Nicotine? No [email or web address] Information not available 03/17/2022 Sex: Female Functional Status None recorded. Mental Status None recorded. Family History Relationship Description Onset Age of this Age Resolved Age Notes Sister Family history of br east cancer Medical History Condition Response Sexually Transmitted Infection N Diabetes N Bleeding Disorder N Other N High Blood Pressure N Kidney Stones N Cancer N Lung Disease N Depression Y High Cholesterol N GERD/Acid Reflux N Heart Disease Y Gynecological HistoryNo gynecological history recorded. Obstetrics History GPAL:G 0 P 0 0 0 0 Immunizations Vaccine Type Date Status Provider Name and Address Organization Details Recorded Time Pneumococcal conjugate PCV 13 11/30/2015 completed Summer fong [facility] 03/17/2022 09:32:34 Influenza, seasonal, injectable, preservative free 02/04/2009 completed Summer fong [facility] 03/17/2022 09:32:34 Influenza, seasonal, injectable 02/16/2011 completed Summer fong [facility] 03/17/2022 09:32:34 influenza, trivalent, adjuvanted 03/21/2018 completed Summer fong [facility] 03/17/2022 09:32:34 influenza, injectable, quadrivalent 02/11/2015 she fong [facility] 03/17/2022 09:32:34 zoster recombinant 02/07/2019 completed Summer fong [facility] 03/17/2022 09:32:34 Influenza, high dose seasonal 02/22/2016 she fong [facility] 03/17/2022 09:32:34 Influenza, seasonal, injectable 02/08/2010 completed Summer Santana null, [facility] 03/17/2022 09:32:34 Influenza, seasonal, injectable 02/13/2012 completed Summer Santana null, [facility] 03/17/2022 09:32:34 Influenza, seasonal, injectable 03/31/2003 completed Summer Santana null, [facility] 03/17/2022 09:32:34 Influenza vaccine, quadrivalent, adjuvanted 03/09/2020 completed Summer Garyu null, [facility] 03/17/2022 09:32:34 Influenza, seasonal, injectable 02/13/2013 completed Summer Santana null, [facility] 03/17/2022 09:32:34 Influenza vaccine, quadrivalent, adjuvanted 02/27/2022 [facility] 09:32:34 Influenza, high dose seasonal 02/07/2017 [facility] 09:32:34 COVID-19, mRNA, LNP-S, PF, 30 mcg/0.3 mL dose 07/30/2020 [facility]22 09:32:34 zoster live 11/02/2011 completed Summer Santana null, [facility] 03/17/2022 09:32:34 COVID-19, mRNA, LNP-S, PF, 30 mcg/0.3 mL dose 03/24/2021 completed Summer Santana null, [facility] 03/17/2022 09:32:34 COVID-19, mRNA, LNP-S, PF, 30 mcg/0.3 mL dose 07/09/2020 completed Summer Santana null, [facility] 03/17/2022 09:32:34 Influenza, seasonal, injectable 03/13/2006 [facility]22 09:32:34 pneumococcal polysaccharide PPV23 12/08/2016 completed Summer fong [facility] 03/17/2022 09:32:34 Tdap 06/24/2009 completed Summer fogn [facility] 03/17/2022 09:32:34 Novel [id number], all formulations 06/10/2009 completed Summer fong [facility] 03/17/2022 09:32:34 Influenza vaccine, quadrivalent, adjuvanted 03/17/2021 completed Summer fong [facility] 03/17/2022 09:32:34 zoster recombinant 08/29/2018 completed Summer fong [facility] 03/17/2022 09:32:34 Td (adult), 2 Lf tetanus toxoid, preservative free, adsorbed 08/29/2018 completed Summer fong [facility] 03/17/2022 09:32:34 Influenza, high dose seasonal 02/07/2019 completed Summer fong [facility] 03/17/2022 09:32:34 Influenza, seasonal, injectable 02/12/2014 completed Summer fong [facility] 03/17/2022 09:32:34 Past Encounters Encounter ID Performer Location Encounter Start Date Encounter Closed Date Diagnosis/Indication Diagnosis SNOMED-CT Code [id number] Tanmay Sauceda MD [facility] [address] [place] [id number] 03/17/2022 09:03:31 03/21/2022 11:01:43 Recurrent urinary tract infection 138665078 Mixed urin dominick incontinence 222680866 [id number] [facility] [address] [place] [address] 04/10/2022 14:59:34 04/12/2022 10:33:12 Recurrent urinary tract infection 790937352 Mixed urin dominick incontinence 433534665 [id number] Tanmay Sauceda MD [facility] [address] [place] [id number] 07/28/2022 14:32:43 08/05/2022 08:58:56 Urge incontinence of urine 38711259 Health Concerns Section Related Observation LastModified by Organization Detai ls LastModified Time None Recorded Concern Status LastModified by Organization Details LastModified Time None Recorded Advance Directives Directive None Recorded Payers Encounter Date Sequence Insurance Name Policy Number Policy Delgado Covered Member ID Delgado Member ID Guarantor Name 07/28/2022 1 [place] [employer] [place] [place] COST [id number] Renay Jaeger [id number] Renay Santosriel 04/10/2022 1 [place] [employer] [place] COST [id number] Renay Jaeger [id number] Renay September [place] 03/17/2022 1 [place] [employer] Renay Jaeger [id number] Renay Jaeger 03/17/2022 1 [place] [id number] Renay Jaeger [id number] Renay Jaeger Notes Date Note Type Note Provider Name and Address Organization Details Recorded Time 03/17/2022 text/html HPI Notes: New patient referred for incontinence and history of UTIs. I reviewed the most recent clinic notes from Dr. Jasper Snyder with [facility] dated 01/18/2022. I also reviewed the recent cultures from [facility]. Urine culture on 03/01/2022 was negative, urine culture on 07/05/2021 showed pansensitive E. coli, and there are no other urine cultures dating back to the past 3 years. She reports symptoms of dysuria and frequency that did improve with the recent course of Keflex. At baseline, she has stress and urge incontinence. She had a mid urethral sling at [facility] 5 years ago but I do not have the clinic notes or operative reports available. She had temporary improvement in her incontinence but now has predominantly 2+ pad per day urge incontinence. There is a minor component of stress incontinence. She reports poor bladder awareness. Urinalysis today shows trace leukocytes, otherwise negative. Postvoid residual 0 mL. Tanmay Sauceda MD [address] [place] [address],[address], [place], [address], [facility] 03/17/2022 10:10:35 07/28/2022 text/html HPI Notes: 03/17/22: New patient referred for incontinence and history of UTIs. I reviewed the most recent clinic notes from Dr. Jasper Snyder with [facility] dated 01/18/2022. I also reviewed the recent cultures from [facility]. Urine culture on 03/01/2022 was negative, urine culture on 07/05/2021 showed pansensitive E. coli, and there are no other urine cultures dating back to the past 3 years. She reports symptoms of dysuria and frequency that did improve with the recent course of Keflex. At baseline, she has stress and urge incontinence. She had a mid urethral sling at [facility] 5 years ago but I do not have the clinic notes or operative reports available. She had temporary improvement in her incontinence but now has predominantly 2+ pad per day urge incontinence. There is a minor component of stress incontinence. She reports poor bladder awareness. Urinalysis today shows trace leukocytes, otherwise negative. Postvoid residual 0 mL. 07/28/22: Cystoscopy last visit was normal. She presents today to review her urodynamics and bladder diary from 04/10/2022. These showed good capacity bladder and she typically has voids of up to 15 to 20 ounces. Bladder capacity on urodynamics was 391 mL. She had a fairly stable bladder with no stress incontinence and no uninhibited contractions. Unobstructed voiding pattern. Postvoid residual 0 mill. Tanmay Sauceda MD [address], [place], [address], [facility] 07/28/2022 15:00:15 OBGyn Episode No OBEpisode recorded.
--- OUTSIDE RECORDS SUMMARY | 2023-09-13 08:21 | XMS_ITS | Clinical Summary ---
Author Name Unknown Organization [employer] [employer] Address [place], [place] [address] Care Team Providers Care Iron Melter Name Role Phone Elaine Begum BRASS BOBBIN WINDER Unavailable Unavaila Jessica Lu DO Primary Care Provider [phone] Allergies Active Allergy Reactions Criticality Noted Date Comments Aspirin 07/16/2006 Quezada Stomach Hydromorphone Itching 11/18/2015 Gadodiamide Hives Medium 12/12/[address] contrast dye ominpaque 350 in 2016, 2018 and 2021 without reaction. Signed Electronically: Ethan Merritt M.D. ??. . . 5:01 PM 09/05/2022 ?? Iodinated Contrast Media Hives Low 08/29/2022 has tolerated in the past Eszopiclone Cough 07/07/2014 Metoprolol 07/16/2006 FATIQUE AND SWEATING Hydrocodone-Acetaminophen Itching 12/23/2018 Medications Medication Sig Dispensed Refills Start Date End Date Status MULTIPLE VITAMIN TAB take 1 tablet by oral route once daily with food 0 Active CALCIUM 500 WITH D 500 MG (1,250 MG)-400 UNIT TAB twice daily 0 12/11/2006 Active VITAMIN B-12 2,500 MCG SUBLINGUAL TAB take one daily 0 03/16/2009 Active VITAMIN C 100 MG TAB take one daily 0 03/16/2009 Active VITAMIN D 2,000 UNIT CAP take one daily 0 03/16/2009 Active cetirizine (ZYRTEC) 10 mg tabletIndications :Urticaria, unspecified Take 1 tablet by mouth once daily. 30 tablet 5 08/26/2009 Active betamethasone dipropionate 0.05% (DIPROSONE 0.05% CREAM) 0.05 % creamIndications: Granuloma annulare Apply topically to affected area(s) 2 times daily. 30 g 10/08/2017 Active FLUoxetine (PROZAC) 10 mg capsuleIndication s:Anxiety and depression Take 2 Capsules (20 mg) by mouth every morning. 180 Capsule 3 03/14/2022 Active fish oil-omega-3 fatty acids 300-1,000 mg May resume in 2 weeks from surgery 0 10/10/2022 Active nortriptyline (PAMELOR) 25 mg capsuleIndication s:Headache, unspecified headache type TAKE 1 CAPSULE AT BEDTIME 90 Capsule 3 11/02/2022 Active omeprazole (PRILOSEC) 20 mg Delayed-Release capsuleIndication s:Hiatal hernia,Gastroesop hageal reflux disease without esophagitis Take 1 Capsule (20 mg) by mouth once daily before a meal. 90 Capsule 12/18/2022 Active losartan (COZAAR) 100 mg tabletIndications :Essential hypertension with goal blood pressure less than 130/80 TAKE 1 TABLET ONE TIME DAILY 90 Tablet 2 01/27/2023 Active hydroCHLOROthiazi de (HCTZ) 25 mg tabletIndications :HTN (hypertension) TAKE 1 TABLET EVERY DAY 90 Tablet 08/18/2023 Active hydrOXYzine HCL (ATARAX) 10 mg tabletIndications :BERONICA (generalized anxiety disorder) TAKE 1 TO 2 TABLETS AT BEDTIME IF NEEDED 180 Tablet 08/18/2023 Active hydrOXYzine HCL (ATARAX) 10 mg tabletIndications :BERONICA (generalized anxiety disorder) TAKE 1 TO 2 TABLETS AT BEDTIME IF NEEDED 180 Tablet 05/29/2022 4 Discontinued hydroCHLOROthiazi de (HCTZ) 25 mg tabletIndications :HTN (hypertension) TAKE 1 TABLET ONE TIME DAILY 90 Tablet 01/19/2023 4 Discontinued Active Problems Problem Noted Date Diagnosed Date Stage 3a chronic kidney disease 12/13/2022 Acute radicular low back pain 12/13/2022 Urge incontinence of urine 03/16/2022 Recurrent urinary tract infection 03/16/2022 Granuloma annulare 10/08/2017 MDD (major depressive disord er), recurrent, in full remission 08/26/2015 Rectocele 10/15/2014 Grief; in Feb. 07/06/2014 Insomnia 07/06/2014 Knee osteoarthritis 03/06/2014 Mass of thoracic vertebra 03/06/2014 Advance care planning 03/03/2014 Overview: Patient has identified Health Care Agent(s): Yes Add Health Care Agents: Yes Health Care Agent(s): Primary Health Care Agent: Yosi Mil Relationship: Phone:h)[phone] Secondary Health Care Agent: Sonia Dominguez Relationship: daughter Phone:(h)[phone] (c)[phone] Patient has Advance Care Plan Documents (Health Care Directive, POLST): Yes Advance Care Plan Documents: Health Care Directive Patient has identified Specific Treatment Preferences: Yes Specific Treatment Preferences: a.) Code Status: CPR/Attempt Resuscitation I want CPR attempted unless my physician determines any one of the following: I have an incurable illness or injury and dana dying; OR I have no reasonably chance of survival if my heart stops;OR I have little chance of long-term survival if my heart stops and the process of resuscitation would cause significant suffering b.) Goals of Treatment: iii. Provide Life sustaining treatment. Intubate, cardiovert, and provide medically necessary care to sustain life. Use of mechanical ventilation short duration; NO usp use. c.) Interventions and Treatments: i. Antibiotics: - Use Aggressive antibiotic treatment for a reversible condition ii. Nutrition/Hydration: - Offer food and liquids by mouth - IV fluid administration iii. Transfusion: - Blood products for comfort/relief of symptoms only iv. Dialysis: - May dialyze intermodal customer service if I am able to make this decision and have quality of life. Encounter for long-term (current) use of medicat ions 01/15/2014 BERONICA (generalized anxiety disorder) 12/18/2013 Lumbar facet arthropathy 10/19/2010 Acromioclavicular joint separation, type 2 06/29 Degeneration of lumbar or lumbosacral interverte bral disc 04/06/2010 Sensorineural hearing loss, bilateral 09/08/2008 Esophageal reflux 07/16/2006 Overview: EGD 05/2008 Reactive gastropathy EGD 10/2013 Reactive gastropathy Diaphragmatic hernia without mention of obstruction or gangrene 07/16/2006 Other specified temporomandibular joint disorder s 07/16/2006 Headache(784.0) 07/16/2006 Overview: DR.GEORGE HARGROVE Other psoriasis 07/16/2006 Unspecified essential hypertension 07/16/2006 Benign neoplasm of colon 07/16/2006 Overview: Colonoscopy 03/2011 normal repeat in 5 years Colonoscopy 12/2016 long colon repeat in 5 years Unspecified constipation 07/16/2006 Resolved Problems Problem Noted Date Diagnosed Date Resolved Date Depression with anxiety 01/26/201112/05 Encounters Date Type Department Care Team Description 09/05/2023 10:15 AM CDT Orders Only [facility] [address] [place] [address] Lab, [facility] Lab 09/05/2023 Travel 09/04/2023 Telephone [facility] [address] [place] [address] Dawson Jessica Hannah, DO Prior Authorization (hydrOXYzine HCL (ATARAX) 10 mg tablet) 08/31/2023 Telephone [facility] [address] [place] [address] Jaronra Jessica Hannah, DO Medication Management (Wegovy) 08/21/2023 11:00 AM CDT Preop Visit [facility] [address] [place] [address] Jaronra Jessica Hannah, DO Preoperative Exam (09/13/23 - [facility] - Dr. Voss - Dalila total knee) 08/21/2023 Travel 08/17/2023 Refill [facility] [address] [place] [address] Dawson Jessica Hannah, DO Refill Request (Hydrochlorothiazide, Hydroxyzine Hcl) from Last 3 Months Immunizations Name Administration Dates Next Due COVID-19 vaccine (ZPower 30mcg/0.3mL) KORIN LEAVITT 07/30/2020,07/09/2020 Influenza A (H1N1), Inactivated 06/10/2009 Influenza, High-dose Inactivated 02/07/2019,10/0 08/2016,02/22/2016 Influenza, IIV3 (Age 6-35 mos) 02/04/2009 Influenza, IIV3 (Age >=3 years) 02/13/20 14,02/13/2013,02/13/2012,2010,02/08/2010,03/13/2006,03/31/2003 Influenza, IIV4 (=>6mos) MDV 02/11/2015 Influenza, Inactivated AIIV4 (Age 65+ Years) Preserv Free 03/07/2023,02/27/2022,03/17/2021,2019 Influenza, Inactivated IIV3 (Age 65+ Years) Preserv Free 03/21/2018 Pneumococcal Poly,23-Valent (Pneumovax) 12/08/2016 Pneumococcal conj 13-Valent (Prevnar 13) 11/30/2015 Td (Age >=7 Years) 08/29/2018,05/07/1998 Tdap 06/24/2009 Zoster (Shingrix-RZV, recombinant) 02/07/2019, Zoster (Zostavax-ZVL, live) 11/02/2011 Family History Medical History Relation Name Comments Thyroid Disease Daughter 1 Grave's dis. Thyroid Disease Daughter 2 hypothyroid Hypertension Father Other Father of emphyse ma Cancer Mother THROAT Hypertension Mother Cancer Other niece Cancer-breast Other niece Thyroid Disease Other niece with t hyroid cancer Alzheimer's disease Sister 1 Kolton at age 75 Heart Disease Sister 2 Prema Other Sister 2 Prema tobacco use Alzheimer's disease Sister 3 Vivienne Cancer-breast Sister 3 Vivienne Fibromyalgia Sister 4 Yessi Cancer-ovarian No Family History Relation Name Status Comments Brother 1 Alive Brother 2 Alive Brother 3 Alive Brother 4 Figueroa Daughter 1 Daughter 2 Father Mother (Age 76) Other Sister 1 Kolton Sister 2 Prema (Age 80) Sister 3 Vivienne Sister 4 Yessi Alive Social History Tobacco Use Types Packs/Day Years Used Date Smoking Tobacco: Never Smokeless Tobacco: Never Tobacco Cessation:Counseling Given: Yes Alcohol Use Standard Drinks/Week Comments No 0 (1 standard drink = 0.6 oz pur e alcohol) PHQ-2 Answer Date Recorded PHQ-2 TOTAL SCORE 2 03/16/2023 Social Connections Answer Date Recorded Frequency of Communication with Friends and Fami ly 0 08/21/2023 Financial Resource Strain Answer Date R ecorded Difficulty of Paying Living Expenses 3 08/21/2023 Difficulty of Paying Living Expenses Not on file 08/21/2023 Food Insecurity Answer Date Recorded Worried About Running Out of Food in the Last Ye ar 1 08/21/2023 Transportation Needs Answer Date Record ed Lack of Transportation (Medical) 1 08/21/2023 Housing Stability Answer Date Recorded Unable to Pay for Housing in the Last Year 1 08/21/2023 Sex and Gender Information Value Date Recorded Sex Assigned at Not on file Gender Identity Not on file Sexual Orientation Not on file Obstetrics History Para Term AB IAB SAB Ectopic Multiple Livin g Live Births 3 3 3 3 Date Outcome GA Total Labor Labor/2nd/3rd Weight Sex Delivery Anes PTL Hannah A1 A5 Name Cl in Term 4.14 kg (9 lb 2 oz) Vag Term 3.69 kg (8 lb 2 oz) Vag Term 3.8 kg (8 lb 6 oz) Vag Last Filed Vital Signs Vital Sign Reading Time Taken Comments Blood Pressure 134/81 08/21/2023 11:00 AM CDT Pulse 82 08/21/2023 11:00 AM CDT Temperature 35.8 ??C (96.5 ??F) 11/11/2022 1:35 PM CD T Respiratory Rate 16 11/11/2022 1:35 PM CDT Oxygen Saturation 100% 08/21/2023 11:00 AM CDT Inhaled Oxygen Concentration - - Weight 90.4 kg (199 lb 6.4 oz) 08/21/2023 11:00 AM CDT Height 162.7 cm (5' 4.06) 03/16/2023 1:06 PM CS T Body Mass Index 34.17 03/16/2023 1:06 PM [employer]ILER SHOP SUPERVISOR Plan of Treatment Upcoming Encounters Date Type Department Care Team (Late st Contact Info) Description 10/09/2023 10:10 AM CDT Office Visit [facility] [address] [place] [address] Jessica Osman, DO [address] [place] [address] Health Maintenance Due Date Last Done Comments Colonoscopy through age 75 12/08/202112/08, 12/08/2016, 12/08/2016, Additional history exists COVID-19 vaccine series ( season) 2023 03/24/2021, 07/30/2020, 07/09/2020 Mammogram for age 45-75 06/22/2023 06/22/19 23, 05/26/2021, 05/25/2020, Additional history exists Influenza for age 65+ 01/06/2024 03/07/2023 , 02/27/2022, 03/17/2021, Additional history exists BMI (ht and wt on same day) for age 18+ 03/16/2024 03/16/2023, 09/18/2022, 03/14/2022, Additional history exists Medicare Wellness for age 65+ 03/16/2024, 03/14/2022, 03/07/2021, Additional history exists Depression screening for age 12+ 03/19/2024 03/19/2023, 03/16/2023, 03/14/2022, Additional history exists Lipids for age 45-75 03/16/2028 03/16/2023, 02/16/2020, 08/29/2018, Additional history exists Tetanus booster 08/29/2028 08/29/2018, 06/07, 05/07/1998 Tdap Completed 06/24/2009 Pneumococcal series for age 65+ Completed 7, 11/30/2015 Hepatitis C screening for ag e 18-79 Completed 12/26/2018 Zoster (shingles) series for age 50+ Completed 02/07/2019, 08/29/2018, 11/02/2011 DEXA/DXA scan for age 65+ Completed 2022, 12/30/2018, 11/02/2011 Procedures Procedure Name Priority Date/Time Associated Diagnosis Comments BASIC METABOLIC PANEL Routine 09/05/2023 10:04 AM CDT Elevated serum creatinine Hypercalcemia EKG 12 LEAD Routine 08/27/2023 1:04 PM CDT Pre-op exam RI READING EKG - NO CHARGE, COMP ONLY Routine 08/27/2023 1:03 PM CDT Pre-op exam HEMOGLOBIN Routine 08/21/2023 11:50 AM CDT Pre-op exam BASIC METABOLIC PANEL Routine 08/21/2023 11:50 AM CDT Pre-op exam XR DXA BONE DENSITY 2 SITES AXIAL Routine 03/19/2023 1:13 PM [employer] SUPER[employer]OR Osteopenia, unspecified location Post-menopausal LIPID PANEL W REFLEX MEASURED LDL Routine 03/16/2023 1:40 PM [employer] SUPER[employer]OR Lipid screening XR MAMMO STEPHEN BILAT SCREEN Routine 06/22/2022 11:47 AM [employer] SUPER[employer] Visit for screening mammogram ANTI HCV Routine 12/26/2018 3:39 PM CDT Encounter for hepatitis C screening test for low risk patient COLONOSCOPY 12/08/2016 8:49 AM CDT from Last 3 Months or Most Recently Relevant to Health Maintenance Results * (ABNORMAL) BASIC METABOLIC PANEL (09/05/2023 10:04 AM CDT) Only the most recent of2 resultswithin the time period is included. SODIUM 139 136 - 145 mmol/L 09/05/2023 7:24 PM CDT [facility] POTASSIUM 4.3 3.5 - 5.1 mmol/L 09/05/2023 7:24 PM CDT [facility] CHLORIDE 101 98 - 107 mmol/L 09/05/2023 7:24 PM CDT [facility] CO2,TOTAL 29 22 - 29 mmol/L 09/05/2023 7:24 PM CDT [facility] ANION GAP 9 5 - 18 09/05/2023 7:24 PM CDT [facility] GLUCOSE 96 70 - 99 mg/dL 09/05/2023 7:24 PM CDT [facility] CALCIUM 9.7 8.8 - 10.2 mg/dL 09/05/2023 7:24 PM CDT [facility] BUN 29(H) 8 - 23 mg/dL 09/05/2023 7:24 PM CDT [facility] CREATININE 0.89 0.50 - 0.90 mg/dL 09/05/2023 7:24 PM CDT [facility] BUN/CREAT RATIO 33(H) 10 - 20 7:24 PM CDT [facility] eGFR 69(L) >90 mL/min/1.7 3m2 09/05/2023 7:24 PM CDT [facility] Comment:As of 2021, eG FR is calculated by the CKD-EPI creatinine equation without race adjustment. ??eGFR can be influenced by muscle mass, exercise, and diet. ??The reported eGFR is an estimation only and is only applicable if the renal function is stable. Blood BLOOD SPECIMEN / Unknown Venipuncture / Unknown 09/05/2023 10:04 AM CDT 09/05/2023 10:05 AM CDT Jessica Hannah Dawson DO CHEMISTRY [facility] [address] [place], [place] [id number], * EKG 12 LEAD (08/27/2023 1:04 PM CDT) Jessica Hannah Dawson DO EKG ORD * RI READING EKG - NO CHARGE, COMP ONLY (08/27/2023 1:03 PM CDT) Jessica Hannah Darylqra DO PB - PROVIDER READIN GS * HEMOGLOBIN (08/21/2023 11:50 AM CDT) HEMOGLOBIN 15.1 12.0 - 16.0 g/dL 08/21/2023 11:59 AM CDT [facility] MCV 94 80 - 100 fL 08/21/2023 11:59 AM CDT [facility] Blood BLOOD SPECIMEN / Unknown Venipuncture / Unknown 08/21/2023 11:50 AM CDT 08/21/2023 11:52 AM CDT Jessica Osman DO HEMATOLOGY [facility] [address] [place] [address], * (ABNORMAL) XR DXA BONE DENSITY 2 SITES AXIAL (03/19/2023 1:13 PM [employer]ER [employer] SUPERVISOR) Anatomical Region Laterality Modality Spine, HIPS, HIPL, HIPR Other Impressions 03/21/2023 4:22 PM [employer] SUPERVISOR Osteopenia. RECOMMENDATIONS: The National Osteoporosis Foundation recommends pharmacologic treatment for patients with T-scores of -2.5 or less, patients with prior history of fragility fractures, or patients with 10-year probability of greater than 3% at hips or greater than 20% of suffering major osteoporotic fractures. Recommend continued optimization of calcium and vitamin D intake through dietary means and/or supplementation and regular exercise. Repeat scan recommended in 3-5 years. Juana Nielsen PA-C [facility] 03/21/2023 ?? Narrative 03/21/2023 4:22 PM [employer] SUPERVISOR For Patients: Results are automatically released to your [employer]) account once available, in compliance with federal regulations. This means that you may see your results before your provider has had a chance to review them. Please allow 2-3 business days for your provider to comment on the results. XR DXA Bone Mineral Density (BMD) EXAM LOCATION: [facility] [address] [facility] [address] PATIENT NAME: Renay Jaeger DATE OF : 1950 EXAM DATE: 03/19/2023 REQUESTING PROVIDER: Jessica Osman DO GENDER AT : female HEIGHT: 5' 4.06 (03/16/2023) WEIGHT: ??205 lb 8 oz (03/16/2023) MENOPAUSAL STATUS: Postmenopausal RACE/ETHNICITY: White RISK FACTORS: Menopause < Age 40 and White Race CURRENT MEDICATION FOR BONE LOSS: NONE INDICATION: Follow-up of existing osteopenia and Post-Menopause COMPARISON DATE(S): 2018 DXA scans are compared to prior studies for a patient only when the two (or more) studies were performed on the same scanner. It is not possible to compare data generated on one scanner to data from another because there are not standards in DXA equipment. This applies even if the two scanners are made by the same precision farming specialist. PROCEDURE: Dual-energy x-ray absorptiometry performed with routine technique. Reporting is completed in the form of a T-score. The T-score represents the standard deviation from peak bone mass based on young healthy adult. A Z-score is used for diagnosis in premenopausal women, and for men under the age of 50. FINDINGS: RESULT LUMBAR SPINE L1 - L4 BMD: 0.993 g/cm2 T-Score: - 1.6 Z-Score: - 0.8 Change from prior in 2019: ??Increase 0.8%. RESULTS FEMUR Left femoral neck BMD: 0.765 g/cm2 T-Score: - 2.0 Z-Score: - 0.7 Change from prior in 2019: ??Decrease 3.5%. Right femoral neck BMD: 0.817 g/cm2 T-Score: - 1.6 Z-Score: - 0.4 Change from prior in 2019: ??Increase 0.6%. Left hip BMD: 0.729 g/cm2 T-Score: - 2.2 Z-Score: - 1.2 Change from prior in 2019: ??Decrease 2.9%. Right hip BMD: 0.808 g/cm2 T-Score: - 1.6 Z-Score: - 0.6 Change from prior in 2019: ??Increase 3.6%. WHO criteria: Normal: T-score at or above -1 SD Osteopenia: T-score between -1.1 and -2.4 SD Osteoporosis: T-score at or below -2.5 SD FRAX RISK CALCULATION (USED FOR OSTEOPENIA ONLY): 10-year probability of major osteoporotic fracture: 11.8%. 10-year probability of hip fracture: 2.6%. Jessica Osman DO DEXA * LIPID PANEL W REFLEX MEASURED LDL (03/16/2023 1:40 PM BOILER [employer]OP SUPERVISOR) [facility] CHOLESTEROL,TOTAL 157 100 - 199 mg/dL 03/16/2023 9:23 PM [employer]ER [employer]OP SUPERVISOR [facility] Comment: Cholesterol, Total Reference Ranges Desirable <200 mg/dL Borderline 200-239 mg/dL High >=240 mg/dL TRIGLYCERIDES 92 <150 mg/dL 03/16/2023 9:23 PM [employer]ILER SHOP SUPERVISOR [facility] HDL CHOLESTEROL 58 >40 mg/dL 9:23 PM [employer]ILER SHOP SUPERVISOR [facility] NON-HDL CHOLESTEROL 99 <145 mg/dl 03/16/2023 9:23 PM [employer]ILER SHOP SUPERVISOR [facility] CHOL/HDL RATIO 2.71 <4.50 03/16/2023 9:23 PM [employer]ILER SHOP SUPERVISOR [facility] LDL CHOLESTEROL 81 <=130 mg/dL 03/16/2023 9:23 PM BOILER SHOP SUPERVISOR [facility] VLDL CHOLESTEROL 18 <=30 mg/dL 03/16/2023 9:23 PM [employer]ILER SHOP SUPERVISOR [facility] PROVIDER ORDERED STATUS RANDOM 03/16/2023 9:23 PM [employer]ILER SHOP SUPERVISOR [facility] Blood BLOOD SPECIMEN / Unknown Venipuncture / Unknown 03/16/2023 1:40 PM [employer]ER SHOP SUPERVISOR 03/16/2023 1:40 PM [employer]ILER [employer]OP SUPERVISOR Jessica Osman DO CHEMISTRY [facility] [address] [place] [address], * XR MAMMO STEPHEN BILAT SCREEN (06/22/2022 11:47 AM BOILER SHOP SUPERVISOR) Anatomical Region Laterality Modality BREASTS, Breast Left, Breast Right Bilateral Mammography Impressions 06/22/2022 4:00 PM [employer]ILER SHOP SUPERVISOR ??There is no radiographic evidence for malignancy. ??Recommend annual mammograms. MAMMOGRAM ASSESSMENT: ??ACR 1 Negative PATIENTS: You will also receive a letter with your examination results in an easy to read format. ??If you have questions about your results, please contact your referring provider. Narrative 06/22/2022 4:00 PM BOILER SHOP SUPERVISOR For Patients: As a result of the Century Cures Act, medical imaging exams and procedure reports are released immediately into your electronic medical record. You may view this report before your referring provider. If you have questions, please contact your health care provider. XR MAMMO STEPHEN BILAT SCREEN [[id number]] CLINICAL HISTORY: ??This is an asymptomatic 71 y.o. patient. INDICATION FOR EXAM: Mammogram Screening. TECHNIQUE: CC & MLO views were obtained. ??This study was evaluated with the assistance of Computer-Aided Detection. Breast Tomosynthesis was used in interpretation. COMPARISON FILM: Yes 05/26/21 [facility] 05/25/20 [facility] FINDINGS: ??The breasts are almost entirely fatty. There are no dominant masses, suspicious micro calcifications or areas of architectural distortion. Jessica Osman DO MAMMO * ANTI HCV (12/26/2018 3:39 PM CDT) HEPATITIS C ANTIBODY Non-React virgil Non-React virgil 12/26/2018 7:53 PM CDT [facility] Comment:Antibodies to HCV no t detected; does not exclude the possibility of exposure to HCV. Blood BLOOD SPECIMEN / Unknown Venipuncture / Unknown 12/26/2018 3:39 PM CDT 12/26/2018 3:39 PM CDT Raquel KEENAN SEND OUTS [facility] [address] [place] [address], * COLONOSCOPY (12/08/2016 8:49 AM CDT) 12/08/2016 8:49 AM CDT Narrative Transcriptions Lencho Mccormack MD - 12/08/2016 10:08 AM CDT Patient Name: Renay Jaeger Procedure Date: 12/08/2016 Gender: Female Date of : 1950 Admit Type: Outpatient Procedure: Colonoscopy Proceduralist: Lencho Mccormack MD , Felecia Ruiz (Nurse) Indications/Pre-Op Diagnosis: Surveillance: Personal history ofadenomatous polyps on last colonoscopy > 5 years ago,Last colonoscopy: March 2011 Medications: Fentanyl 100 micrograms IV, Midazolam 2 mgIV, The level of sedation administered wasmoderate Procedure Description: The patient had risks, benefits and alternatives explained to andgave informed consent. The patient had a stable cardiopulmonary status and judged an adequate candidate for conscious sedation. The [id number] was passed through the anus and advanced tothe terminal ileum. The colonoscopy was performed without difficulty. The patient tolerated the procedure well. The quality of the bowel preparation was good. The terminal ileum and the rectum were photographed. Complications: No immediate complications. Estimated Blood Loss & Specimen: Estimated blood loss: none. Specimen collected - None Findings: The perianal and digital rectal examinations were normal. There was evidence of a prior end-to-side ileo-colonic anastomosis in the ascending colon. This was patent and was characterized by healthy appearing mucosa. The anastomosis was traversed. The colon (entire examined portion) was moderately redundant. The exam was otherwise without abnormality on direct and retroflexion views. Impressions/Post-Op Diagnosis: - Patent end-to-side ileo-colonic anastomosis, characterized byhealthy appearing mucosa. - Redundant colon. - The examination was otherwise normal on direct and retroflexionviews. - No specimens collected. Recommendation: - Patient has a contact number available for emergencies. The signsand symptoms of potential delayed complications were discussed with the patient. Return to normal activities tomorrow. Written discharge instructions were provided to the patient. - Resume previous diet. - Continue present medications. - Repeat colonoscopy in 5 years for surveillance. Moderate Sedation: Moderate (conscious) sedation was administered by the endoscopy nurse and supervised by the endoscopist. The following parameters were monitored: oxygen saturation, heart rate, respiratory rate, blood pressure, adequacy of pulmonary ventilation and reponse to care. [facility] and nursing notes for moderate sedation details. Total physician intraservice time was 23 minutes. Lencho Mccormack MD 12/08/2016 10:08:02 AM This report has been signed electronically. Note Initiated On: 12/08/2016 8:49 AM Procedure Code(s): --- Professional --- 66457, Colonoscopy, flexible; diagnostic, including collection of specimen(s) bybrushing or washing, when performed (separateprocedure) Diagnosis Code(s): --- Professional --- Z86.010, Personal history of colonicpolyps Z98.0, Intestinal bypass and anastomosisstatus Q43.8, Other specified congenitalmalformations of intestine CPT copyright 2016 [employer]. All rights reserved. The codes documented in this report are preliminary and upon behavioral health specialist reviewmay be revised to meet current compliance requirements. Scope In: 9:40:33 AM Scope Withdrawal Time 0 hours 9 minutes 38 seconds Scope Out: 10:01:37 AM Lencho Mccormack MD PROCEDURE ORD from Last 3 Months or Most Recently Relevant to Health Maintenance Advance Directives Documents on File Type Date Recorded Patient Paint Stockman Expl anation Healthcare Directive 02/26/2014 3:27 PM Stevie KASPER, 02/26/2014 * Full Code (Latest Code Status on File) Date Activated Date Inactivated Comments 09/26/2022 9:22 AM 09/26/2022 6:22 PM Question Answer Comments Code Status Discussion: Per Existing Order * Full Code Date Activated Date Inactivated Comments 01/07/2015 7:10 PM 01/08/2015 5:45 PM * Full Code Date Activated Date Inactivated Comments 01/07/2015 10:16 AM 01/07/2015 7:10 PM Care Teams Iron Melter Relationship Specialty Start Date End Date Jessica Osman DO [address] [place] [address] PCP - General Family Practice 01/25/22 Elaine Begum CNS Clinical Nurse Specialist 12/29/14
[2023-09-13] MEDS: OXYCODONE (CR) 10 MG TAB.ER.12H PO (09:15)
[2023-09-13] MEDS: CELECOXIB 200 MG CAPSULE PO (09:15)
[2023-09-13] MEDS: MIDAZOLAM HCL 1 MG/ML inj IVP (09:19)
[2023-09-13] MEDS: fentaNYL 100 MCG/2 ML inj IVP (09:19)
[2023-09-13] MEDS: LACTATED RINGERS 1000 ML 1,000 ML 100 ML IV ×2 (09:25→11:46)
--- NOTE | 2023-09-13 09:34 | SUR.PREOP ---
TIME?OUT:?15 PT/RN/MDA?VERIFICATION?OF?SURGICAL?SITE,?PROCEDURE,?AND?CONSENT OBTAINED?PRIOR?TO?INVASIVE?PROCEDURE.
[2023-09-13] MEDS: CEFAZOLIN 2 GM INJ IVP (09:40)
[2023-09-13] MEDS: TRANEXAMIC ACID 100 MG/ML INJ 1000 MG IV (09:45)
[2023-09-13] MEDS: SODIUM CHLORIDE 0.9 % (FLUSH) 10 ML SYRINGE IVF (09:51)
--- NOTE | 2023-09-13 09:56 | P.ANES_ITS ---
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
--- NOTE | 2023-09-13 11:09 | XR_ITS ---
Patient: NIHARIKA CARLSON Facility:?[facility] Patient ID:?[id number] Site Patient ID:?[id number]. Site :?[id number] Study:?XRay-Extremity Left KNEE POST OP TKA-09/13/2023 12:22:40 PM Ordering Physician:LONNIE Final Report: INDICATION: Postop left total knee arthroplasty. COMPARISON: 05/13/2019. TECHNIQUE: Two views of the left knee. FINDINGS: Interval postoperative changes following semi constrained left total knee arthroplasty with cemented femoral and tibial components. Hardware is intact. No periprosthetic lucency or fracture is identified. Anticipated soft tissue and intra-articular gas with soft tissue swelling. IMPRESSION: Anticipated postoperative changes following left total knee arthroplasty. No evidence of immediate hardware complication. Dictated by Mahogany Franks MD @ 09/14/2023 10:17:46 AM Signed by:?Mahogany Franks MD @09/14/2023 10:17:46 AM (Electronic Signature)
--- NOTE | 2023-09-13 11:12 | P.ORPRC_ITS ---
Procedure Note Date of procedure: 09/13/23 Procedure: PREOPERATIVE DIAGNOSIS: Left knee osteoarthritis POSTOPERATIVE DIAGNOSIS: Left knee osteoarthritis NAME OF OPERATION: Left total knee arthroplasty SURGEON: Manny Voss MD ART OBJECTS REPAIRER: JEN Oropeza ANESTHESIA: Spinal ESTIMATED BLOOD LOSS: 0 mL COMPLICATIONS: None SPECIMENS: None DRAINS: None PREOPERATIVE ANTIBIOTICS: Ancef 2 grams IMPLANTS: 1. J&J Attune revision CRS # 5 posterior stabilized femur, with a 14 mm x 50 mm cemented stem 2. #6 revision CRS fixed-bearing tibia, with a 14 mm x 50 mm cemented stem 3. # 5 posterior stabilized, 6 mm fixed-bearing polyethylene 4. 38 patella INDICATIONS: The patient is a 72-year-old with a longstanding history of severe, unrelenting left knee pain secondary to end-stage (grade IV) left knee osteoarthritis. Despite appropriate nonoperative management, including activity modification, anti-inflammatories, ktpr-izz-[id number] pain medication, bracing, physical therapy, and injections they continue to have pain and disability. Operative intervention was offered. The risks, benefits and expected outcomes were discussed in detail. These included but were not limited to: Infection, bleeding, injury to blood vessel or nerve, venous thromboembolism. All questions were answered to their satisfaction. Use of an social worker assistant was necessary throughout the case for patient positioning and safety, soft tissue retraction, and closure. A modifier 22 should be added to this case. Given the severe valgus deformity and lateral bone loss revision components were used for enhanced stability. This added more time and more cost to the case. PROCEDURE: Spinal anesthesia was administered. The patient was placed supine on the operating table. The social worker assistant made sure the patient was positioned appropriately. The lower extremity was prepped and draped in the usual sterile fashion. The limb was exsanguinated with the Lencho bandage. The pneumatic tourniquet was inflated to 300 mmHg. A standard anterior incision was made with the knee in flexion. Subcutaneous dissection was sharply taken through fascial layer #1. Full-thickness medial and lateral flaps were elevated. The social worker assistant retracted the soft tissues and protected them throughout the case. A standard subvastus approach was made. The patella was subluxed. The infrapatellar fat pad was preserved. The menisci and cruciate ligaments were sharply d?brided. Marginal osteophytes were d?brided with the rongeur. The drill was used to penetrate the femoral canal. The canal was aspirated and irrigated with pulse lavage. The intramedullary femoral guide was placed for a 5-degree valgus cut, removing 12 mm off the distal femur. The saw was used to make the cut. Whitesides line and the trans epicondylar axis were marked. The femoral sizing guide was pinned onto the distal femur. Three degrees of external rotation nicely parallels the transepicondylar axis. Pins were placed for posterior referencing. The four-in-one cutting guide was pinned onto the distal femur. The anterior, posterior, and chamfer cuts were made. The social worker assistant protected the collateral ligaments. The revision trial was placed. The box cuts were made. The drill was used x2. The stemmed, boxed trial was placed and was an excellent fit. Attention was then turned to the proximal tibia. The extramedullary tibial guide was placed for a neutral varus/valgus cut with 5 degrees of posterior slope, removing 2 mm based off the medial tibial surface. The social worker assistant protected the collateral ligaments and the neurovascular bundle. The saw was used to make the cut. Trial components were placed. The knee was nicely balanced in both flexion and extension. The trial components were removed. The tray was placed in appropriate rotation, parallel to our tibial cutting pins. It was pinned by the social worker assistant and the drill x2 was used. The stemmed tibial trial was placed. The punch was used. The tray was removed. The punch was used again. Attention was then turned to the patella. Quileute patellar thickness was 22 mm. The lobster claw resection guide was used with the 7.5 mm martin. The saw was used to make the cut. The patella was too thick. We therefore freehand cut another 2 mm. Drill holes were made by the social worker assistant. The trial was placed and was an excellent fit. Cancellous surfaces were irrigated with pulse lavage and thoroughly dried by the social worker assistant. We cemented the tibial component, then the femoral component. We impacted the 6 mm polyethylene onto the tibial tray. The knee was brought into full extension. We then cemented the patellar component. Excessive cement was removed. The cement was allowed to harden. The knee was taken through a range of motion and was found to be nicely balanced in both flexion and extension. The patella tracks centrally. The social worker assistant did a three minute dilute Betadine solution soak. The social worker assistant irrigated the wound with 3 liters of normal saline via pulse lavage. The social worker assistant reapproximated the extensor mechanism with #1 Vicryl in an interrupted [id number] fashion. The social worker assistant then ran the extensor mechanism with a #1 PDO Stratafix. The social worker assistant closed the subcutaneous tissues with a 3-0 Stratafix and the skin with a running 3-0 Stratafix in a subcuticular fashion. Glue was used to seal the skin. The social worker assistant placed a dry dressing. Sponge and needle counts were correct x2. The patient tolerated the procedure well. There were no apparent complications. They were carefully transferred to the hospital bed and taken to the postanesthesia care unit in satisfactory condition. PLAN: The patient will be mobilized with physical therapy. Aspirin will be used for DVT prophylaxis. They will be discharged to home once medically appropriate.
[2023-09-13] MEDS: MEPERIDINE 25 MG/ML INJ 12.5 MG IVP (12:12)
[2023-09-13] MEDS: fentaNYL 100 MCG/2 ML inj 50 MCG IVP (12:30)
--- NOTE | 2023-09-13 13:01 | P.NB_ITS ---
Nerve Block Nerve Block Time Seen by Provider: 09:21 Date Seen: 09/13/23 Type of block requested by surgeon for post-operative analgesia: adductor canal Side: left Time out performed: Yes Verification of patient name: Yes Verification of date of : Yes Site marking: site marked Name of person performing procedure: Randy Continuous monitoring Was continuous monitoring of O2 sat, B/P, property assessment monitor, recorded every 15 minutes?: Yes Procedure Checklist: sterile prep, needles and gloves Ultrasound guided. Images saved: Yes Medications given in 5ml increments after negative aspiration: Ropivicaine %: 0.5 mL: 20 Needle gauge: 20 Decadron (mg): 10 Precedex (mcg): 25 Patient tolerated procedure well: Yes Additional comments: Needle noted adjacent to nerve Block Charges Block Charge (with Pro Fee): Femoral Nerve Use of Ultrasound Machine for Block: Yes- US Guidance/pain block
--- NOTE | 2023-09-13 13:02 | W.PM.NB ---
Nerve Block Nerve Block Time Seen by Provider: 09:21 Date Seen: 09/13/23 Type of block requested by surgeon for post-operative analgesia: geniculars Side: left Time out performed: Yes Verification of patient name: Yes Verification of date of : Yes Site marking: site marked Name of person performing procedure: Randy Continuous monitoring Was continuous monitoring of O2 sat, B/P, quality assurance monitor body, recorded every 15 minutes?: Yes Procedure Checklist: sterile prep, needles and gloves Medications given in 5ml increments after negative aspiration: Ropivicaine %: 0.5 mL: 9 Needle gauge: 25 Patient tolerated procedure well: Yes Block Charges Block Charge (with Pro Fee): Genicular Nerve Block Use of Ultrasound Machine for Block: No
--- NOTE | 2023-09-13 13:02 | W.ANESCHARGE ---
Anesthesia Charges Start Date/Time Anesthesia Start Date: 09/13/23 Anesthesia Start Time: 09:29 Stop Date/Time Anesthesia Stop Date: 09/13/23 Anesthesia Stop Time: 11:56 Summary Extremes of Age - Over 70 or under 1: MDA
--- NOTE | 2023-09-13 14:49 | P.IMCN_ITS ---
Date of Consult Patient: [facility] Patient Consult date: 09/13/23 Requesting Physician: Orthopedics Primary Care Provider: Jessica Osman, Consult Narrative Reason for consult: Medical management Narrative: Renay Jaeger is a 72 year old female past medical history significant for hypertension, MDD, generalized anxiety disorder, osteoarthritis is POD#0 status post left TKA. There have been no perioperative complications or nursing concerns reported. Estimated total blood loss documented as 0 ml. Updated and reviewed the active medical problems, past medical history, past surgical history, social history, allergies and medications in our electronic EMR. Postoperatively, patient has just finished working with physical therapy and is having a lot of pain behind her left knee. She is in tears at this time. Mildly nauseous with onset of pain otherwise no vomiting. Review of Systems Narrative: REVIEW OF SYSTEMS: Complete review of systems performed and negative unless otherwise stated in HPI or below. [facility] History MDD (major depressive disorder) ?F32.9 - Major depressive disorder, single episode, unspecified (ICD-10) Recurrent urinary tract infection ?N39.0 - Urinary tract infection, site not specified (ICD-10) Insomnia ?G47.00 - Insomnia, unspecified (ICD-10) Degeneration of lumbar intervertebral disc ?M51.36 - Other intervertebral disc degeneration, lumbar region (ICD-10) Sensorineural hearing loss, bilateral ?H90.3 - Sensorineural hearing loss, bilateral (ICD-10) Benign neoplasm of colon ?D12.6 - Benign neoplasm of colon, unspecified (ICD-10) BERONICA (generalized anxiety disorder) ?F41.1 - Generalized anxiety disorder (ICD-10) Mass of thoracic vertebra ?M48.9 - Spondylopathy, unspecified (ICD-10) Chronic kidney disease, stage 3 ?N18.30 - Chronic kidney disease, stage 3 unspecified (ICD-10) Gastroesophageal reflux disease ?K21.9 - Gastro-esophageal reflux disease without esophagitis (ICD-10) Anemia ?D64.9 - Anemia, unspecified (ICD-10) Liver problem ?K76.9 - Liver disease, unspecified (ICD-10) Rheumatic fever ?I00 - Rheumatic fever without heart involvement (ICD-10) Hypertension ?I10 - Essential (primary) hypertension (ICD-10) Surgical History Hx of bladder repair surgery ?Z98.890 - Other specified postprocedural states (ICD-10) Status post right hemicolectomy ?Z90.49 - Acquired absence of other specified parts of digestive tract (ICD- 10) History of perineoplasty ?Z98.890 - Other specified postprocedural states (ICD-10) ?Z87.42 - Personal history of other diseases of the female genital tract (ICD-10) S/P laparoscopic-assisted sigmoidectomy ?Z90.49 - Acquired absence of other specified parts of digestive tract (ICD- 10) H/O arthroscopy of right knee ?Z98.890 - Other specified postprocedural states (ICD-10) History of colon resection ?Z90.49 - Acquired absence of other specified parts of digestive tract (ICD- 10) History of hysterectomy ?Z90.710 - Acquired absence of both cervix and uterus (ICD-10) History of cholecystectomy ?Z90.49 - Acquired absence of other specified parts of digestive tract (ICD- 10) S/P left knee arthroscopy (07/08/03) ?Z98.890 - Other specified postprocedural states (ICD-10) Family History Mother High blood pressure Throat cancer Sister Breast cancer Social History What is your current living situation?: I presently have a place to live Problems where you live: no known problems In the past 12 months, utilities in danger of being shut off: unable to answer In past 12 months, lack of transportation kept you from medical appts, meetings, work, or getting things needed for daily living: unable to answer In the past 12 mos, have been you worried that your food would run out before you had money to buy more?: unable to answer In the past 12 mos, the food you bought just didn't last and you didn't have money to buy more?: unable to answer Smoking Status: Never smoker Do you use any of these nicotine containing products: None Second hand tobacco smoke exposure: No How often do you have a drink containing alcohol: never How often do you have six or more drinks on one occasion: Never AUDIT-C Alcohol total score: 0 Non-prescribed substance use: denies use Caffeine: Yes How often does anyone, including family, friends and others, physically hurt you : never How often does anyone, including family, friends and others, insult or talk down to you: never How often does anyone, including family, friends and others, threaten you with harm: never How often does anyone, including family, friends and others, scream or curse at you: never service: No Meds Home Medications and Allergies Home Medications Medication Instructions Recorded Confirmed Type ascorbic acid (vitamin C) 1,000 mg 1 g PO DAILY 02/10/22 09/13/23 History tablet biotin 5 mg capsule 5 mg PO DAILY 02/10/22 09/13/23 History cholecalciferol (vitamin D3) 50 50 mcg PO DAILY 02/10/22 09/13/23 History mcg (2,000 unit) tablet cyanocobalamin (vitamin B-12) 500 5,000 mcg PO DAILY 02/10/22 09/13/23 History mcg tablet glucosamine-chondroitin 500 mg-400 3 cap PO BID 02/10/22 09/13/23 History mg capsule nortriptyline 25 mg capsule 25 mg PO .Bedtime 02/10/22 09/13/23 History omeprazole 20 mg capsule,delayed 20 mg PO DAILY 02/10/22 09/13/23 History release polyethylene glycol 3350 17 g PO DAILY 02/10/22 04/23/23 History gram/dose oral powder losartan 100 mg tablet 100 mg PO DAILY 02/13/22 09/13/23 History hydrochlorothiazide 25 mg tablet 25 mg PO DAILY 08/29/22 09/13/23 History fluoxetine 10 mg capsule 20 mg PO DAILY 09/06/22 09/13/23 History hydroxyzine HCl 10 mg tablet 10 mg PO BID 09/06/22 09/13/23 History sqhseor-uadidwtuh-jqij 1 tab PO BID 04/23/23 09/13/23 History multivitamin (Multiple Vitamins 1 tab PO QDAY 04/23/23 09/13/23 History tablet) omega 3-vzc-dez-fish oil 300 1 cap PO QDAY 04/23/23 09/13/23 History mg-1,000 mg capsule (Fish Oil) vitamin E acetate PO 04/23/23 04/23/23 History cetirizine 10 mg tablet 10 mg PO DAILY PRN 09/11/23 09/13/23 History Allergies Allergy/AdvReac Type Severity Reaction Status Date / Time Iodinated Contrast Media Allergy Mild Hives Verified 09/13/23 08:30 metoprolol Allergy Mild Agitated Verified 09/13/23 08:30 aspirin Allergy Verified 09/13/23 08:30 eszopiclone Allergy Verified 09/13/23 08:30 gadodiamide Allergy Verified 09/13/23 08:30 hydrocodone Allergy Verified 09/13/23 08:30 hydromorphone Allergy Verified 09/13/23 08:30 Exam Narrative: Exam Narrative: PHYSICAL EXAM General: Anxious, currently in pain HEENT: Normocephalic, atraumatic, sclera white, EOMI, oral mucosa moist Cardiovascular: RRR, S1S2. No pitting edema Pulmonary: CTA bilaterally without rhonchi, rales, expiratory wheezes. No dyspnea on room air Abdominal: Soft, nondistended, NTTP Neurological: Alert, answering questions appropriately, cranial nerves intact, no focal findings Extremities: No gross joint deformity or swelling. Postoperative dressing in place, dry. Neurovascularly intact Skin: Warm, dry. Const: Vital Signs, click to edit/add: Vital Signs - 24 hr 09/13/23 09:15 09/13/23 11:52 09/13/23 11:55 Temperature 97.5 F L 97.6 F Pulse Rate 76 61 61 Respiratory Rate 16 24 19 Blood Pressure 153/83 H 115/65 118/73 Pulse Oximetry 98 98 98 Oxygen Delivery Me thod Room Air Room Air 09/13/23 12:00 09/13/23 12:05 09/13/23 12:10 Temperature Pulse Rate 61 67 69 Respiratory Rate 14 12 12 Blood Pressure 127/76 127/73 124/80 Pulse Oximetry 98 97 98 Oxygen Delivery Me thod 09/13/23 12:15 09/13/23 12:20 09/13/23 12:25 Temperature 97.2 F L Pulse Rate 66 63 62 Respiratory Rate 18 18 18 Blood Pressure 133/106 H 140/78 H 144/86 H Pulse Oximetry 100 99 100 Oxygen Delivery Me thod 09/13/23 12:34 09/13/23 12:35 09/13/23 13:15 Temperature 96.6 F L Pulse Rate 62 61 66 Respiratory Rate 15 14 18 Blood Pressure 143/70 H 122/65 151/88 H Pulse Oximetry 100 100 97 Oxygen Delivery Me thod Room Air Room Air 09/13/23 13:21 09/13/23 13:30 09/13/23 13:58 Temperature 96.6 F L 96.6 F L 96.6 F L Pulse Rate 64 68 67 Respiratory Rate 18 18 18 Blood Pressure 145/78 H 155/89 H 157/93 H Pulse Oximetry 99 99 98 Oxygen Delivery Me thod Room Air Room Air Room Air 09/13/23 14:30 Temperature 96.7 F L Pulse Rate 67 Respiratory Rate 18 Blood Pressure 154/84 H Pulse Oximetry 93 Oxygen Delivery Me thod Room Air Assessment and Plan Assessment and plan (1) Osteoarthritis of left knee: Problem comment: -POD#0 s/p left TKA, Dr. Voss -perioperative management including pain management and anticoagulation per Orthopedic surgery. Fentanyl and Vistaril added. Reports pruritus with Dilaudid. -encourage postoperative pulmonary hygiene -PT OT consults -plan to discharge home with family tomorrow Status: Acute (2) Hypertension: Problem comment: On losartan and HCTZ, resume tomorrow morning Status: Acute (3) MDD (major depressive disorder): Problem comment: with generalized anxiety disorder Continue Fluoxetine Status: Acute Plan May resume home medications upon discharge. Hospital medicine team will sign off. Please contact our service with any questions or concerns. Total Time Spent Total Time Spent: Total time spent caring for the patient today was 45 minutes. This includes time spent for the visit reviewing the chart, time spent during the visit, time spent after the visit and documentation and planning in coordination of care.
[2023-09-13] MEDS: ACETAMINOPHEN 500 MG TABLET 1000 MG PO ×2 (14:54→20:17)
--- NOTE | 2023-09-13 15:09 | PC.NURSE ---
End of Shift Note: Patient arrived from the PACU around 1500. Patient is A & O and no complaints of nausea. Did complain of a headache when she first arrived but states she had headache before surgery. Asked if she drinks caffeine and she did admit to this. Given Coffee and a ice pack to her back of neck and this is giving her some relief from headache. Just received her scheduled tyl along with assist by 1 to the bsc to void which she did void a large amount but unfortunately it was not measured. Her daughter is at bedside. Has no other complaints or needs at this time. Is in the recliner and working with PT. Will continue to monitor until next shift arrives.
[2023-09-13] MEDS: fentaNYL 100 MCG/2 ML inj 25 MCG IVP (16:01)
[2023-09-13] MEDS: hydrOXYzine pamoate 25 MG CAPSULE PO (16:07)
[2023-09-13] MEDS: OXYCODONE 5 MG TABLET PO ×4 (16:42→23:36)
[2023-09-13] MEDS: CEFAZOLIN 2 GM in 0.9 % SODIUM CHLORIDE Mini-bag 100 ML IVPB (17:27)
[2023-09-13] MEDS: SENNOSIDES 1 TAB TABLET 2 TAB PO (20:17)
[2023-09-13] MEDS: ASPIRIN 81 MG TABLET EC PO (20:18)
[2023-09-13] MEDS: NORTRIPTYLINE HCL 25 MG CAPSULE PO (22:43)
--- NOTE | 2023-09-13 22:46 | PC.NURSE ---
Nursing Care Hours: [id number] Pt this shift was having 15/10 post-op pain to left knee. Restless, agitated, and HTN. No IV medications available, order requested and one dose of IV fentanyl given, pain decreased to 4/10. C/o headache 7/10, relieved by aromatherapy. Ice to knee, pedal pulses present bilat. Nicolas wrap in place, capillary refill 4 seconds. Pt c/o numbness and tingling, relieved by elevating on two pillows. Pt up with ax1 with walker and gait belt. Saline locked. Eating, drinking, and voiding sufficiently.
[2023-09-14 01:42] VITALS: BP 135/61; PULSE 80; RESP 16; TEMP 36.7; O2SAT 93
[2023-09-14] MEDS: OXYCODONE 5 MG TABLET PO ×3 (01:50→08:24)
[2023-09-14] MEDS: CEFAZOLIN 2 GM in 0.9 % SODIUM CHLORIDE Mini-bag 100 ML IVPB (01:50)
[2023-09-14] MEDS: ACETAMINOPHEN 500 MG TABLET 1000 MG PO ×2 (01:51→08:24)
[2023-09-14 06:29] LABS: Basophils Absolute Auto 0.01 K/uL (0.00-0.30); Basophils Percent Auto 0.1 % (0.0-3.0); Eosinophils Absolute Auto 0.02 K/uL (0.00-0.50); Eosinophils Percent Auto 0.2 % (0.0-7.0); Hematocrit 37.4 % (33.0-51.0); Hemoglobin* 12.8 gm/dL (12.0-16.0); Immature Granulocytes Abs Auto 0.03 K/uL (0.00-0.30); Immature Granulocytes Pct Auto 0.3 %; Lymphocytes Percent Auto 16.1 % (20-44); Mean Corpuscular HGB Conc 34 gm/dL (32-36); Mean Corpuscular Hemoglobin 32 pg (26-34); Mean Corpuscular Volume 94 fL (80-100); Monocytes Percent Auto 11.7 % (0.0-11.0); Neutrophils Absolute Auto 6.39 K/uL (1.7-7.0); Neutrophils Percent Auto 71.6 % (42.0-72.0); Platelet Count* 223 K/uL (140-440); RDW Coefficient of Variation % 12.1 % (11.5-15.5); White Blood Count* 8.94 K/uL (4.50-11.00)
[2023-09-14 06:30] LABS: Slide Review Reflex No
--- NOTE | 2023-09-14 06:38 | PC.NURSE ---
Pt alert and oriented x3. Afebrile. Pt reports 9/10 pain in left knee, pain managed with cold pack and PRN and scheduled medications. Pt's left knee dressing is CDI with CORNELIA wrap around it. Pt is up SBA with walker and gait belt. Pt is tolerating reg diet and voiding. Pt slept intermittently throughout night.
[2023-09-14 06:50] LABS: INR 1.03 (0.91-1.10); Prothrombin Time 14.2 Seconds
[2023-09-14 06:56] LABS: Potassium* 3.4 mmol/L (3.6-5.1); Sodium* 138 mmol/L (135-149)
[2023-09-14 06:59] LABS: Blood Urea Nitrogen* 12 mg/dL (7-30); Creatinine* 0.7 mg/dL (0.5-1.5); Est. Creatinine Clearance* 43.27; Estimated Glomerular Filt Rate 91 ml/min
--- NOTE | 2023-09-14 07:35 | P.ORPN_ITS ---
Subjective Subjective Time Seen by Provider: 07:35 Date Seen: 09/14/23 Principal diagnosis: Post left knee replacement Interval history: Renay is comfortable. She did not get much rest last night. She is planning to discharge today. Ortho Exam Narrative Exam Narrative: Alert and oriented x3. Patient is in no acute distress. Converses without labored breathing. Hearing is grossly intact. Ambulates with a walker. Examination of the left knee shows dressing is intact. Minimal soft tissue edema. She is able to easily straight leg raise. She has an area numbness over the anterior hinojosa area. Otherwise CMS intact left lower extremity. Calves are soft and nontender. No pretibial edema. No erythema or warmth or sign of infection. Const Vital Signs, click to edit/add: Vital Signs - 24 hr 09/13/23 09:15 09/13/23 11:52 09/13/23 11:55 Temperature 97.5 F L 97.6 F Pulse Rate 76 61 61 Pulse Rate [Right Radial] Respiratory Rate 16 24 19 Blood Pressure 153/83 H 115/65 118/73 Blood Pressure [Right Arm] Pulse Oximetry 98 98 98 Oxygen Delivery Method Room Air Room Air 09/13/23 12:00 09/13/23 12:05 09/13/23 12:10 Temperature Pulse Rate 61 67 69 Pulse Rate [Right Radial] Respiratory Rate 14 12 12 Blood Pressure 127/76 127/73 124/80 Blood Pressure [Right Arm] Pulse Oximetry 98 97 98 Oxygen Delivery Method 09/13/23 12:15 09/13/23 12:20 09/13/23 12:25 Temperature 97.2 F L Pulse Rate 66 63 62 Pulse Rate [Right Radial] Respiratory Rate 18 18 18 Blood Pressure 133/106 H 140/78 H 144/86 H Blood Pressure [Right Arm] Pulse Oximetry 100 99 100 Oxygen Delivery Method 09/13/23 12:34 09/13/23 12:35 09/13/23 13:15 Temperature 96.6 F L Pulse Rate 62 61 66 Pulse Rate [Right Radial] Respiratory Rate 15 14 18 Blood Pressure 143/70 H 122/65 151/88 H Blood Pressure [Right Arm] Pulse Oximetry 100 100 97 Oxygen Delivery Method Room Air Room Air 09/13/23 13:21 09/13/23 13:30 09/13/23 13:58 Temperature 96.6 F L 96.6 F L 96.6 F L Pulse Rate 64 68 67 Pulse Rate [Right Radial] Respiratory Rate 18 18 18 Blood Pressure 145/78 H 155/89 H 157/93 H Blood Pressure [Right Arm] Pulse Oximetry 99 99 98 Oxygen Delivery Method Room Air Room Air Room Air 09/13/23 14:30 09/13/23 15:30 09/13/23 16:00 Temperature 96.7 F L 99.2 F Pulse Rate 67 Pulse Rate [Right Radial] Respiratory Rate 18 24 Blood Pressure 154/84 H 190/105 H 214/114 H Blood Pressure [Right Arm] Pulse Oximetry 93 Oxygen Delivery Method Room Air 09/13/23 17:00 09/13/23 18:00 09/13/23 19:00 Temperature 98.6 F 98.9 F Pulse Rate 82 81 81 Pulse Rate [Right Radial] Respiratory Rate 20 18 18 Blood Pressure 180/92 H 166/85 H 143/75 H Blood Pressure [Right Arm] Pulse Oximetry 99 98 98 Oxygen Delivery Method Room Air Room Air Room Air 09/13/23 23:38 09/14/23 01:42 Temperature 98.9 F 98.1 F Pulse Rate Pulse Rate [Right Radial] 81 80 Respiratory Rate 18 16 Blood Pressure Blood Pressure [Right Arm] 142/80 H 135/61 Pulse Oximetry 93 93 Oxygen Delivery Method Room Air Room Air Assessment and Plan Assessment and plan (1) Status post left knee replacement: Problem details: 09/13/2023 Dr. Voss Status: Acute Assessment and Plan: Plan for discharge is today to home if they meet discharge criteria. DVT prophylaxis includes aspirin 81 mg twice daily x1 month, Compression stockings as needed for swelling. Frequent ambulation, every hour throughout the day. Although she has an allergy to aspirin, she and Dr. Voss spoke and felt aspirin 81 mg twice daily would be tolerated. Remove dressing in 1 week. Observe wound and phone Orthopedics with any questio ns or concerns Return to clinic in 1 week for a wound check Return to clinic in 6 weeks with surgeon Minimize narcotic use. Wean off and discontinue soon as possible. Activities as tolerated. No strenuous activity. Outpatient physical therapy as scheduled. Ice and elevate the operative extremity. No restriction on ice.
[2023-09-14 08:20] VITALS: BP 140/71; PULSE 90; RESP 16; TEMP 36.8; O2SAT 98
[2023-09-14] MEDS: SENNOSIDES 1 TAB TABLET 2 TAB PO (08:24)
[2023-09-14] MEDS: ASPIRIN 81 MG TABLET EC PO (08:25)
== END 2023-09-14 10:20 | disposition home or self-care (01) ==
LOC: OR 08:19 → MEDSURG 08:25
PROVIDERS: PCP Family Medicine; Visit Provider Orthopaedic Surgery
PROC: (CPT 27447; principal; 2023-09-13 08:45)
DX: M17.12 Unilateral primary osteoarthritis, left knee (principal); G89.18 Other acute postprocedural pain; I12.9 Hypertensive chronic kidney disease with stage 1 through stage 4 chronic kidney disease, or unspecified chronic kidney disease; F32.9 Major depressive disorder, single episode, unspecified; F41.1 Generalized anxiety disorder; N18.31 Chronic kidney disease, stage 3a
CPT/HCPCS: 27447; 01402; 36415; 64447; 64454; 73560; 76942; 82565; 84132; 84295; 84520; 85025; 85610; 97110; 97116; 97161; 97165; 97530; 97535; 99100; A9270; C1776; J0690; J1100; J2175; J2250; J2371; J2405; J2704; J2795; J3010; J7120

== ENCOUNTER 2023-11-01 11:00 | Outpatient (RCR) | payer MEDICARE, BC, SELFPAY ==
--- NOTE | 2023-09-17 14:49 | PT.OPEX ---
PT [place] Out[facility] Eval PT [facility] Outpatient Eval Start: 09/17/23 10:58 Freq: Status: Active Protocol: Document 09/17/23 10:58 NILDA (Rec: 09/17/23 14:42 NILDA [email or web address]) E-signed By Michelle Perez DPT Physical Therapy Outpatient Evaluation Insurance Information Recert Due Date 12/16/23 Insurance Name Medicare B Medical Diagnosis s/p L TKA 09/13/23 Treating Diagnosis s/p L TKA 09/13/23 with L knee pain, impaired L knee ROM, impaired L knee/LE mobility/ strength, limping/antalgic gait using FWW, limited tolerance for extended standing/walking, interrupted sleep Subjective Subjective Patient reports chronic L knee pain leading up to L TKA . She d/c home the next day . Reports having help available at home as needed. She is getting around using FWW. Able to get up/down 3 stairs with railing to enter/ exit home. States she was able to go to her daughter's home yesterday with 2 family members assisting with stairs to get into house as they did not have a railing. Noticed some increased swelling in L LE after bus day yesterday. She is using pain meds every 6-8 hours. Occasionally taking tylenol. Icing regularly. Pain range 3-7/10. HEP is going ok. She is using a strap to assist with exercises as needed. She is able to lift L LE to get into/ out of bed. Reports sleeping some in the recliner chair, some in bed. Date of Last Physician Visit 09/14/23 Date of Surgery (If applicable) 09/13/23 Current Work Status Retired Assessment Assessment/Impression Patient is a 72 year old female s/p L TKA 09/13/23 with L knee pain, impaired L knee ROM, impaired L knee/LE mobility/strength, limping/ antalgic gait using FWW, limited tolerance for extended standing/walking, interrupted sleep. Pain range 3-7/10. L knee ROM 0-8-105 degrees. Patient lacking full ext this session. Reviewed ext stretching for HEP. Reviewed and continued with TKA exercises. Patient with weak quad set, ext lag with SAQ, SLR, LAQ. She is able to lift L LE to get into/out of bed. Amb with FWW is slow, limping , antalgic. Patient would benefit from skilled PT for pain/swelling management, improved L knee ROM, improved L knee/LE mobility/strength, improved gait, and establishment of HEP. Plan of Care Rehabilitation Potential Good Physical Therapy Goals 1. Decrease L knee pain to less than/equal to 3/10 with daily activities and with the progression of PT activities over the next 4-6 weeks. 2. Improve L knee ROM to 0- 120 degrees or greater over the next 6-8 weeks for return to functional knee ROM and improved gait mechanics. 3. Improve L knee/LE mobility /strength over the next 6-8 weeks for return to transfers with ease, return to extended standing/ walking for ADLs/household activities, and for improved gait mechanics with/without AD. 4. Patient will be I with HEP within 8 weeks for progression toward above goals, ongoing self-management of pain/swelling, ongoing self improvements in L knee ROM/strength and for return to normal gait with/ without AD. Coordination/Communication With Referral Source Treatment Plan/Direct Interventions Gait Training,Manual Therapy, Therapeutic Exercises Frequency/Duration 2x/week Patient Will Be Discharged From Therapy Completion of LTG(s),Skills Plateau,Independent w/HEP, Independently Progressing Evaluation Billing Untimed Code Treatment Minutes 23 Complexity Moderate Certification Information Initial Certification Date 09/17/23 Ending Certification Date 12/16/23 Provider Signature Shows Agreement With POC & Medical Necessity Physician Signature & Date Requested Please Sign/Date Here Physician Comment/Change : Physician NPI Number #
== END 2024-02-29 23:59 | disposition home or self-care (01) ==
PROVIDERS: PCP Family Medicine; Visit Provider Orthopaedic Surgery
DX: M17.12 Unilateral primary osteoarthritis, left knee (principal); Z96.652 Presence of left artificial knee joint; M25.562 Pain in left knee; Z74.09 Other reduced mobility; R26.9 Unspecified abnormalities of gait and mobility; G47.9 Sleep disorder, unspecified; Z51.89 Encounter for other specified aftercare
CPT/HCPCS: 97110; 97162

== ENCOUNTER 2024-02-19 05:52 | Day surgery (SDC) | payer MEDICARE, BC, SELFPAY ==
[2024-02-19] VITALS (13 sets, daily range): BP systolic 130–153; BP diastolic 72–87; PULSE 72–89; RESP 13–20; TEMP 36.1–36.8; O2SAT 93–100; BMI 35.5
--- OUTSIDE RECORDS SUMMARY | 2024-02-19 05:57 | XMS_ITS | Data Portability ---
Author Organization [facility], [facility] Address [address] [place] [address] Care Team Providers Care Zinc Etcher Name Role Phone [facility] Primary Care Provider Assessment No assessment recorded. Plan of Treatment Reminders Order Date Submit Date Provider Last Modified By Organization Details Last Modified Time Details Appointments None recorded. Lab urinalysis, dipstick 2021 022 [email or web address] [facility], [address], [address], [place], [address], 09:39:39 urinalysis, dipstick 2021 022 [email or web address] [facility] [place], [address] [place] [address] [place], [address], 16:39:22 Referral None recorded. Procedures urodynamic testing, complex (PROC) 2021 022 [email or web address] Not available 14:14:11 Surgeries None recorded. Imaging None recorded. Medication Orders None recorded. Patient TargetsNo targets recorded. Patient InstructionsNo instructions recorded. Reason for Referral None Reported. Results Created Date Observation Date Name Description Value Unit Range Abnormal Flag Note LastModifiedBy Organization Detail LastModifiedTime 03/17/20 22 03/17/2022 urina lysis , dipst ick Color-Status Yellow Not Available [facility] [address], [place], [address], 03/17/2022 09:39:14 03/17/20 22 03/17/2022 urina lysis , dipst ick Clarity-Stat us Slight ly Cloudy Not Available [facility] [address], [place], [address], 03/17/2022 09:39:14 03/17/20 22 03/17/2022 urina lysis , dipst ick pH-Status 7.0 Not Available [facility] [address], [place], [address], 03/17/2022 09:39:14 03/17/20 22 03/17/2022 urina lysis , dipst ick Leuko-Status Small Not Available [facility] [address], [place], [address], 03/17/2022 09:39:14 04/10/20 22 04/10/2022 urina lysis , dipst ick Color-Status Yellow Not Available [facility] [address], [place], [address], 04/10/2022 16:38:24 04/10/20 22 04/10/2022 urina lysis , dipst ick Clarity-Stat us Clear Not Available [facility] [address], [place], [address], 04/10/2022 16:38:24 04/10/20 22 04/10/2022 urina lysis , dipst ick Glucose-Stat us Negati ve Not Available [facility] [address], [place], [address], 04/10/2022 16:38:24 04/10/20 22 04/10/2022 urina lysis , dipst ick Bilirubin-St atus Negati ve Not Available [facility] [address], [place], [address], 04/10/2022 16:38:24 04/10/20 22 04/10/2022 urina lysis , dipst ick Ketones-Stat us Negati ve Not Available [facility] [address], [place], [address], 04/10/2022 16:38:24 04/10/20 22 04/10/2022 urina lysis , dipst ick Sp [place]-Stat us 1.015 Not Available [facility] [address], [place], [address], 04/10/2022 16:38:24 04/10/20 22 04/10/2022 urina lysis , dipst ick pH-Status 6.5 Not Available [facility] [address], [place], [address], 04/10/2022 16:38:24 04/10/20 22 04/10/2022 urina lysis , dipst ick Protein-Stat us 5.0 Not Available [facility] [address], [place], [address], 04/10/2022 16:38:24 04/10/20 22 04/10/2022 urina lysis , dipst ick Urobilinogen -Status 0.2 Not Available [facility] [address], [place], [address], 04/10/2022 16:38:24 04/10/20 22 04/10/2022 urina lysis , dipst ick Nitrates-Sta tus negati ve Not Available [facility] [address], [place], [address], 04/10/2022 16:38:24 04/10/20 22 04/10/2022 urina lysis , dipst ick Blood-Status Negati ve Not Available [facility] [address], [place], [address], 04/10/2022 16:38:24 04/10/20 22 04/10/2022 urina lysis , dipst ick Leuko-Status Small Not Available [facility] [address], [place], [address], 04/10/2022 16:38:24 04/10/20 22 04/10/2022 urina lysis , dipst ick Specimen Type Voided Not Available [facility] [address], [place], [address], 04/10/2022 16:38:24 03/21/20 22 03/17/2022 bladd er scan (PROC ) No observ ation record ed. BARCODE Not Available 2021 09:48:52 Result Notes None recorded. Problems Name Problem SNOMED Code Status Onset Date Resolution Date Notes Provider Name and Address Organization Details Recorded Time Recurrent urinary tract infection 882598566 Active 2021 Tanmay Sauceda MD [address] [place] [address], [address], [facility] 2 10:08:22 Mixed urinary incontinence 265535906 Active 2021 Tanmay Sauceda MD [address] [place] [address], [address], [facility] 2 10:08:29 Urge incontinence of urine 43020080 Active 2022 Tanmay Sauceda MD [address] [place] [address], [address], [facility] 3 14:59:17 Problem Notes None recorded. Procedures Surgical History Date Name Laterality Status Provider Name and Address Organization Details Recorded Time 04/10/20 22 Urodynamic Studies completed Ayla Diggs [facility] 04/12/2022 15:01:32 03/17/20 22 Cystoscopy- female completed Tanmay Sauceda MD [address], [place], [address], [facility] 03/17/2022 10:08:17 03/17/20 22 Bladder Scan completed Summer Santana [facility] 03/17/2022 09:37:49 03/17/20 17 Colonoscopy completed Summer Santana [facility] 03/17/2022 09:34:49 Total Hysterectomy completed Summer Santana [facility] 03/17/2022 09:34:57 Imaging Results Imaging Date Name Status LastModified by Organiz ation Details LastModified Time 03/17/2022 bladder scan (PROC) completed BARCODE Information not available 03/21/2022 09:48:52 Procedure Notes None recorded. Medical Equipment None Reported. Allergies Allergen ID Allergen Name Allergen Category Reaction Reaction Severity Criticality Documentation Date Start Date Code Code System Note Provider Name and Address Organization Details Recorded Time 025432 gadodiami de medicatio n rash Not available Not available 03/17/2022 10353 RxNorm Summer fong [facility] 2 09:22:38 965144 Dilaudid medicatio n itching Not available Not available 03/17/2022 56034 3 RxNorm Summer fong [facility] 2 09:23:06 169335 Lunesta medicatio n cough Not available Not available 03/17/2022 90157 4 RxNorm Summer fong [facility] 2 09:23:17 575474 metoprolo l Not available other Not available Not available 03/17/2022 6918 RxNorm Fatig ue/sw eatin g Summer fong [facility] 2 09:24:47 216376 acetamino phen / hydrocodo ne medicatio n itching Not available Not available 03/17/2022 49858 2 RxNorm Summer fong [facility] 2 09:25:16 Medications Name Sig Start Date [...] Updated DateTime 03/17/2022 162.56 cm 29.2 kg/m2 06353.7 g Summer Santana [facility] 03/17/2022 09:32:27 Date Recorded Body height Provider Name an d Address Organization Details Last Updated DateTime 04/10/2022 162.56 cm Ayla Diggs [facility] 04/12/2022 14:49:58 Date Recorded Body height Body mass index (BMI) Body weight Provider Name and Address Organization Details Last Updated DateTime 07/28/2022 162.56 cm 29.2 kg/m2 64879.7 g Sadie Monge [facility] 07/28/2022 14:35:57 Social History Question Answer Notes LastModified by Organizat ion Details LastModified Time Tobacco Smoking Status Never Smoker Summer fong [facility] 03/17/2022 09:27:56 What Was The Date Of Your Most Recent Tobacco Screening? 07/28/2022 [email or web address] Information not available 07/28/2022 Do You Or Have You Ever Used Any Other Forms Of Tobacco Or Nicotine? No [email or web address] Information not available 03/17/2022 Sex: Unknown Functional Status None recorded. Mental Status None recorded. Family History Relationship Description Onset Age of this Age Resolved Age Notes LastModified by Organization Details LastModified Time Sister Family history of breast cancer [email or web address] Not available 2021 09:34:27 Medical History Condition Response Diabetes N Sexually Transmitted Infection N Other N Bleeding Disorder N High Blood Pressure N Kidney Stones N Cancer N Lung Disease N Depression Y High Cholesterol N GERD/Acid Reflux N Heart Disease Y Gynecological HistoryNo gynecological history recorded. Obstetrics History GPAL:G 0 P 0 0 0 0 Immunizations Vaccine Type Date Status Provider Name and Address Organization Details Recorded Time Pneumococcal conjugate PCV 13 11/30/2015 she fong [facility] 03/17/2022 09:32:34 Influenza, split virus, trivalent, PF 02/04/2009 she fong [facility] 03/17/2022 09:32:34 Influenza, split virus, trivalent, preservative 02/16/2011 she fong [facility] 03/17/2022 09:32:34 Influenza, adjuvanted, trivalent, PF 03/21/2018 she fong [facility] 03/17/2022 09:32:34 Influenza, split virus, quadrivalent, preservative 02/11/2015 she fong [facility] 03/17/2022 09:32:34 zoster recombinant 02/07/2019 she fong [facility] 03/17/2022 09:32:34 Influenza, high-dose, trivalent, PF 02/22/2016 completed Summer Santana null, [facility] 03/17/2022 09:32:34 Influenza, split virus, trivalent, preservative 02/08/2010 completed Summer Santana null, [facility] 03/17/2022 09:32:34 Influenza, split virus, trivalent, preservative 02/13/2012 completed Summer Santana null, [facility] 03/17/2022 09:32:34 Influenza, split virus, trivalent, preservative 03/31/2003 completed Summer Santana null, [facility] 03/17/2022 09:32:34 Influenza, adjuvanted, quadrivalent, PF 03/09/2020 completed Summer Santana null, [facility] 03/17/2022 09:32:34 Influenza, split virus, trivalent, preservative 02/13/2013 completed Summer Santana null, [facility] 03/17/2022 09:32:34 Influenza, adjuvanted, quadrivalent, PF 02/27/2022 completed Summer Santana null, [facility] 03/17/2022 09:32:34 Influenza, high-dose, trivalent, PF 02/07/2017 completed Summer Santana null, [facility] 03/17/2022 09:32:34 COVID-19, mRNA, LNP-S, PF, 30 mcg/0.3 mL dose 07/30/2020 completed Summer Santana null, [facility] 03/17/2022 09:32:34 zoster live 11/02/2011 completed Summer Santana null, [facility] 03/17/2022 09:32:34 COVID-19, mRNA, LNP-S, PF, 30 mcg/0.3 mL dose 03/24/2021 completed Summer Santana null, [facility] 03/17/2022 09:32:34 COVID-19, mRNA, LNP-S, PF, 30 mcg/0.3 mL dose 07/09/2020 completed Summer fong [facility] 03/17/2022 09:32:34 Influenza, split virus, trivalent, preservative 03/13/2006 completed Summer fong [facility] 03/17/2022 09:32:34 pneumococcal polysaccharide PPV23 12/08/2016 completed Summer fong [facility] 03/17/2022 09:32:34 [facility] 09:32:34 Novel [id number], all formulations 06/10/2009 completed Summer fong [facility] 03/17/2022 09:32:34 Influenza, adjuvanted, quadrivalent, PF 03/17/2021 completed Summer fong [facility] 03/17/2022 09:32:34 zoster recombinant 08/29/2018 completed Summer fong [facility] 03/17/2022 09:32:34 Td (adult), 2 Lf tetanus toxoid, preservative free, adsorbed 08/29/2018 completed Summer fong [facility] 03/17/2022 09:32:34 Influenza, high-dose, trivalent, PF 02/07/2019 completed Summer fong [facility] 03/17/2022 09:32:34 Influenza, split virus, trivalent, preservative 02/12/2014 she fong [facility] 03/17/2022 09:32:34 Past Encounters Encounter ID Performer Location Encounter Start Date Encounter Closed Date Diagnosis/Indication Diagnosis SNOMED-CT Code Diagnosis ICD10 Code [id number] Tanmay Sauceda MD [facility] [address] [place] [address] 03/17/2022 09:03:31 03/21/2022 11:01:43 Recurrent urinary tract infection 910395188 N39.0 Mixed urin dominick incontinence 583249372 N39.46 [id number] [facility] [address] [place] [address] 04/10/2022 14:59:34 04/12/2022 10:33:12 Recurrent urinary tract infection 028517920 N39.0 Mixed urin dominick incontinence 574222085 N39.46 [id number] Tanmay Sauceda MD [facility] [address] [place] [address] 07/28/2022 14:32:43 08/05/2022 08:58:56 Urge incontinence of urine 38494502 N39.41 Health Concerns Section Related Observation LastModified by Organization Detai ls LastModified Time None Recorded Concern Status LastModified by Organization Details LastModified Time None Recorded Advance Directives Directive None Recorded Payers Encounter Date Sequence Insurance Name Policy Number Policy Delgado Covered Member ID Delgado Member ID Guarantor Name 03/17/2022 1 [place] [employer] [facility] Renay Santosriel [id number] Renay Jaeger 03/17/2022 1 [place] [id number] Renay Santosriel [id number] Renay Valerael 04/10/2022 1 [place] [id number] Renay Jaeger [id number] Renay Santosriel 07/28/2022 1 [place] [id number] Renay Jaeger [id number] Renay Jaeger Notes Date Note Type Note [...] She had a mid urethral sling at [facility] 5 years ago but I do not have the clinic notes or operative reports available. She had temporary improvement in her incontinence but now has predominantly 2+ pad per day urge incontinence. There is a minor component of stress incontinence. She reports poor bladder awareness. Urinalysis today shows trace leukocytes, otherwise negative. Postvoid residual 0 mL. Tanmay Sauceda MD [address] [place] [address],[address], [place], [address], [facility] 03/17/2022 10:10:35 07/28/2022 text/html HPI Notes: [...] She had a mid urethral sling at [facility] 5 years ago but I do not [...] residual 0 mill. Tanmay Sauceda MD [address], [place], [address], [facility] 07/28/2022 15:00:15 OBGyn Episode No OBEpisode recorded.
--- OUTSIDE RECORDS SUMMARY | 2024-02-19 05:57 | XMS_ITS | Clinical Summary ---
Author Organization [facility] Address [address] [place] [address] Care Team Providers Care Hospital Director Name Role Phone Needs Pcp, Assignment Primary Care Provider [phone] Source Comments You are receiving this document as you are listed as the primary care provider,follow-up provider, or the patient has been referred to you for consultation.This is in compliance with the Medicare and[facility] Hospital[employer] EHR Incentive Program,which states Providers who transition their patient to another setting of careor provider of care or refers their patient to another provider of care shouldprovide summary care record for each transition of care or referral. 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 Sexual Orientation Straight 04/15/2021 7: 39 PM CHEMICAL MIXER Plan of Treatment Upcoming Encounters Date Type Department Care Team (Late st Contact Info) Description 03/04/2024 10:00 AM CDT Appointment [facility] [address] [place] [address] Mahogany Zavala, OD [address] [place] [address] Health Maintenance Due Date Last Done Comments Colon Cancer Screening Plan Due 1950 Hep C Screening (Preventive Services) 1950 Medicare Annual Wellness Visit 1950 Mammogram 1950 Cholesterol 1994 Dexa 2014 COVID-19 Vaccine ( season) 2024 03/24/2021, 07/30/2020, 07/09/2020 Influenza (#1) 2024 02/27/2022, 03/07, 03/09/2020, Additional history exists RSV (1 - 1-dose 75+ series) 2024 DTaP/Tdap/Td (3 - Tdap) 08/29/2028 08/29/2018, 06/24 [...] on patient's age to complete this topic Infant RSV Aged Out No longer eligi ble based on patient's age to complete this topic MCV4 Aged Out No longer eligi ble based on patient's age to complete this topic Care Teams Hospital Director Relationship Specialty Start Date End Date Needs Pcp, [place] [address] PCP - General 01/27/21
--- OUTSIDE RECORDS SUMMARY | 2024-02-19 05:57 | XMS_ITS | Clinical Summary ---
Author Organization [employer] [facility] Address [place], [place] [address] Care Team Providers Care Uniform Designer Name Role Phone Elaine Begum SOLAR INSTALLER Unavailable Unavaila Jessica Lu DO Primary Care Provider [phone] Allergies Active Allergy Reactions Criticality Noted Date [...] SUBLINGUAL TAB take one daily 0 03/16/2009 Ac tive VITAMIN C 100 MG TAB take one daily 0 03/16/2009 Active VITAMIN D 2,000 UNIT CAP take one daily 0 03/16/2009 Active cetirizine (ZYRTEC) 10 mg tabletIndications: Urticaria, unspecified Take 1 tablet by mouth once daily. 30 tablet 5 08/26/2009 Active betamethasone dipropionate 0.05% (DIPROSONE 0.05% CREAM) 0.05 % creamIndications:G ranuloma annulare Apply topically to affected area(s) 2 times daily. 30 g 10/08/2017 Active fish oil-omega-3 fatty acids 300-1,000 mg May resume in 2 weeks from surgery 0 10/10/2022 Active hydroCHLOROthiazid e 25 mg tabletIndications: HTN (hypertension) TAKE 1 TABLET EVERY DAY 90 Tablet 2 10/26/2023 Active FLUoxetine (PROZAC) 10 mg capsuleIndications :Anxiety and depression TAKE 2 CAPSULES EVERY MORNING 180 Capsule 1 11/06/2023 Active losartan (COZAAR) 100 mg tabletIndications: Essential hypertension with goal blood pressure less than 130/80 TAKE 1 TABLET EVERY DAY 90 Tablet 01/07/2024 Active hydrOXYzine HCL (ATARAX) 10 mg tabletIndications: BERONICA (generalized anxiety disorder) TAKE 1 TO 2 TABLETS AT BEDTIME IF NEEDED 180 Tablet 01/07/2024 Active omeprazole (PRILOSEC) 20 mg Delayed-Release capsuleIndications :Hiatal hernia,Gastroesoph ageal reflux disease without esophagitis TAKE 1 CAPSULE (20 MG) BY MOUTH ONCE DAILY BEFORE A MEAL. 90 Capsule 2 01/07/2024 Active nortriptyline (PAMELOR) 25 mg capsuleIndications :Headache, unspecified headache type TAKE 1 CAPSULE AT BEDTIME 90 Capsule 01/19/2024 Active estradioL (ESTRACE) 0.01% (0.1 mg/g) vaginal cream INSERT 1 GRAM VAGINALLY ONCE DAILY FOR 14 DAYS, THEN 1 GRAM TWICE A WEEK (SUNDAY AND SUNDAY) FOR 14 DAYS 01/02/2024 Active Phentermine HCl 30 mg capsuleIndications :Weight loss counseling, encounter for,Obesity (BMI 30.0-34.9) Take 1 Capsule (30 mg) by mouth once daily before a meal. 30 Capsule 11/28/2023 4 Discontinued (*Med complete/Reg imen complete/Lev el of care change) orlistat (FRANCISCO) 60 mg capsuleIndications :Weight loss counseling, encounter for Take 1 Capsule (60 mg) by mouth three times daily with meals. 90 Capsule 3 01/02/2024 4 Discontinued (*Med complete/Reg imen complete/Lev el of care change) estradioL (ESTRACE) 0.01% (0.1 mg/g) vaginal creamIndications:V aginal atrophy Insert 1 g into the vagina once daily for 14 days, THEN 1 g every Sunday and Sunday for 14 days. 42.5 g 2 01/02/2024 4 Active Problems Problem Noted Date Diagnosed Date Status post left knee replacement 01/31/2024 Stage 3a chronic kidney disease 12/13/2022 Acute radicular low back pain 12/13/2022 Urge incontinence of urine 03/16/2022 Recurrent urinary tract infection 03/16/2022 Granuloma annulare 10/08/2017 MDD (major depressive disord er), recurrent, in full remission 08/26/2015 Rectocele 10/15/2014 Grief; in Fe. 07/06/2014 Insomnia 07/06/2014 Knee osteoarthritis 03/06/2014 Mass of thoracic vertebra 03/06/2014 Advance care planning 03/03/2014 Overview (03/03/2014): Patient has identified Health Care Agent(s): Yes Add Health Care Agents: Yes Health Care Agent(s): Primary Health Care Agent: Yosi Jaeger Relationship: Phone:(h)[phone] Secondary Health Care Agent: Sonia Dominguez Relationship: daughter Phone:(h)[phone] (c)[phone] Patient has Advance Care Plan Documents (Health [...] Use of mechanical ventilation short duration; NO assisted use. c.) Interventions and Treatments: i. Antibiotics: - Use Aggressive antibiotic treatment for a reversible condition ii. Nutrition/Hydration: - Offer food and liquids by mouth - IV fluid administration iii. Transfusion: - Blood products for comfort/relief of symptoms only iv. Dialysis: - May dialyze aquatic physiotherapist if I am able to make this decision and have quality of life. Encounter for long-term (current) use of medicat ions 01/15/2014 BERONICA (generalized anxiety disorder) 12/18/2013 MDD (major depressive disorder) 01/26/2011 Lumbar facet arthropathy 10/19/2010 Acromioclavicular joint separation, type 2 06/29 Degeneration of lumbar or lumbosacral interverte bral disc 04/06/2010 Sensorineural hearing loss, bilateral 09/08/2008 Esophageal reflux 07/16/2006 Overview (10/10/2013): EGD 05/2008 Reactive gastropathy EGD 10/2013 Reactive gastropathy Diaphragmatic hernia without mention of obstruction or gangrene 07/16/2006 Other specified temporomandibular joint disorder s 07/16/2006 Headache(784.0) 07/16/2006 Overview (07/16/2006): DR.GEORGE HARGROVE Other psoriasis 07/16/2006 Unspecified essential hypertension 07/16/2006 Benign neoplasm of colon 07/16/2006 Overview (12/08/2016): Colonoscopy 03/2011 normal repeat in 5 years Colonoscopy 12/2016 long colon repeat in 5 years Unspecified constipation 07/16/2006 Encounters Date Type Department Care Team Description 02/13/2024 Telephone [facility] [address] [place] [address] Jessica Osman, DO Medication Management (Bladder Infection ) 02/04/2024 Telephone [facility] [address] [place] [address] Jessica Osman, DO Follow Up 02/03/2024 12:20 PM CDT Office Visit [facility] [address] [facility] [place] [address] Ofelia Akbar, RAMOS Throat Problem (scratchy throat x 3 days no problem eating); Ear Problem (itchy denies pain); Cough (non productive) 02/03/2024 Orders Only [facility] [address] [place] [address] Ofelia Akbar NP <No scans attached> 02/03/2024 Travel 01/31/2024 1:15 PM CDT Office Visit [address] [address] Shaqra Adei, DO Preoperative Exam (02/19/2024 - LEFT knee scope - [facility] ) 01/31/2024 Travel 01/15/2024 Refill [facility] [address] [place] [address] Shaqra Jessica Hannah, DO Refill Request (Nortriptyline) 01/08/[address] [address] Shaqra Jessica Hannah, DO Questions; other (returning a call/) 01/04/2024 Refill [facility] [address] [place] [address] Shaqra Jessica Hannah, DO Refill Request (Losartan, Hydroxyzine Hcl, Omeprazole) 01/02/2024 9:20 AM CDT Office Visit [address] [address] Shaqra Jessica Hannah, DO Pelvis Pain/problem (Vaginal/pelvic pressure/pain); Medication Management (Phentermine - does not feel a difference with this) 01/02/2024 Travel 12/12/2023 10:10 AM CDT Office Visit [facility] [address] [place] [address] Shaqra Jessica Hannah, DO UTI (Urgency, cloudy urine, burning with urination x5 days) 12/12/2023 Travel 12/11/[address] [address] Shaqra, Jessica Hannah, DO Appointment Request (Bladder infection) 11/28/[address] [address] Jessica Osman DO Follow Up (fax information ) 11/26/2023 Telephone [facility] [address] [facility] [address] Jessica Osman DO Letter from Last 3 Months Immunizations Name Administration Dates Next Due COVID-19 vaccine ([employer] NTEnergeno 30mcg/0.3mL) PF, MDV 07/30/2020,07/09/2020 Influenza A (H1N1), Inactivated 06/10/2009 Influenza, High-dose Inactivated 02/07/2019,1008/2016,02/22/2016 Influenza, IIV3 (Age 6-35 mos) 02/04/2009 Influenza, [...] Outcome GA Total Labor Labor/2nd/3rd Weight Sex Type Anes PTL Hannah A1 A5 Name Clin Term 4.14 kg (9 lb 2 oz) Vag Term 3.69 kg (8 lb 2 oz) Vag Term 3.8 kg (8 lb 6 oz) Vag Last Filed Vital Signs Vital Sign Reading Time Taken Comments Blood Pressure 155/71 02/03/2024 12:30 PM CDT Pulse 94 02/03/2024 12:30 PM CDT Temperature 36.3 ??C (97.3 ??F) 02/03/2024 12:30 PM C DT Respiratory Rate 16 02/03/2024 12:30 PM CDT Oxygen Saturation 98% 02/03/2024 12:30 PM CDT Inhaled Oxygen Concentration - - Weight 93 kg (205 lb) 02/03/2024 12:30 PM CDT Height 162.7 cm (5' 4.06) 03/16/2023 1:06 PM CS T Body Mass Index 35.13 03/16/2023 1:06 PM PSYCHOLOGIST EDUCATIONAL Plan of Treatment Upcoming Encounters Date Type Department Care Team (Late st Contact Info) Description 03/19/2024 1:45 PM PSYCHOLOGIST EDUCATIONAL Office Visit [facility] [address] [place] [address] Jessica Osman Hannah, DO [address] [place] [address] Health Maintenance Due Date Last Done Comments Colonoscopy through age 75 12/08/202112/08, 12/08/2016, 12/08/2016, Additional history exists Mammogram for age 45-75 06/22/2023 06/22/19, 05/26/2021, 05/25/2020, Additional history exists COVID-19 vaccine series ( season) 2024 03/24/2021, 07/30/2020, 07/09/2020 Influenza for age 65+ 01/06/2024 03/07/2023 , [...] Procedure Name Priority Date/Time Associated Diagnosis Comments STREP A PCR STAT 02/03/2024 12:59 PM CDT Sore throat THROAT RAPID STREP A WITH REFLEX Patient wait 02/03/2024 12:59 PM CDT Sore throat CREATININE Routine 01/31/2024 1:33 PM CDT Pre-op evaluation POTASSIUM Routine 01/31/2024 1:33 PM CDT Pre-op evaluation URINE CULTURE Add On 12/12/2023 10:08 AM CDT Complicated UTI (urinary tract infection) URINALYSIS MICROSCOPIC Routine 12/12/2023 10:08 AM CDT UTI symptoms UA W/ SEDIMENT EXAM REFLEXED PER CRITERIA Routine 12/12/2023 10:08 AM CDT UTI symptoms XR DXA BONE DENSITY 2 SITES AXIAL Routine 03/19/2023 1:13 PM PSYCHOLOGIST EDUCATIONAL Osteopenia, unspecified location Post-menopausal LIPID PANEL W REFLEX MEASURED LDL Routine 03/16/2023 1:40 PM PSYCHOLOGIST EDUCATIONAL Lipid screening XR MAMMO STEPHEN BILAT SCREEN Routine 06/22/2022 11:47 AM PSYCHOLOGIST EDUCATIONAL Visit for screening mammogram ANTI HCV Routine 12/26/2018 3:39 PM CDT Encounter for hepatitis C screening test for low risk patient COLONOSCOPY 12/08/2016 8:49 AM CDT from Last 3 Months or Most Recently Relevant to Health Maintenance Results * STREP A PCR (02/03/2024 12:59 PM CDT) GROUP A STREP Negative 02/04/2024 3:17 PM CDT [facility] Throat SPECIMEN FROM THROAT / Unknown Non-Blood / Unknown 02/03/2024 12:59 PM CDT 02/03/2024 1:08 PM CDT Ofelia Akbar NP MICROBIOLOGY Performing Organization Address City/[facility]/ZIP Co de Phone Number [facility] [address] [place] [address], * THROAT RAPID STREP A WITH REFLEX (02/03/2024 12:59 PM CDT) STREP A ANTIGEN Negative 02/03/2024 1:08 PM CDT [facility] Comment:PCR to follow. Throat SPECIMEN FROM THROAT / Unknown Non-Blood / Unknown 02/03/2024 12:59 PM CDT 02/03/2024 1:00 PM CDT Ofelia Akbar NP MICROBIOLOGY Performing Organization Address [facility]/ZIP Co de Phone Number [facility] [address] [place] [address] * POTASSIUM (01/31/2024 1:33 PM CDT) Pathologist [facility] POTASSIUM 3.8 3.5 - 5.3 mmol/L [employer] [facility] Blood BLOOD SPECIMEN / Unknown 01/31/2024 1:33 PM CDT 01/31/2024 1:34 PM CDT Cher Osman DO CHEMISTRY [facility] [address] [place] [address], [facility] [address] [place] [address] * CREATININE (01/31/2024 1:33 PM CDT) CREATININE 0.88 0.60 - 1.00 mg/dL [facility] EGFR 69 > OR = 60 mL/min/1.73 m2 [facility] Blood BLOOD SPECIMEN / Unknown 01/31/2024 1:33 PM CDT 01/31/2024 1:34 PM CDT Cher Darylmira ZAMBRANO CHEMISTRY Performing Organization Address City/[facility]/ZIP Co de Phone Number [facility] [address] [place] [address], [place] [phone] [facility] [address] [place] [address] * (ABNORMAL) URINALYSIS MICROSCOPIC (12/12/2023 10:08 AM CDT) RBC 11-25(A) 0-2, None Seen /HPF 12/12/2023 10:19 AM CDT [facility] WBC 26-50(A) 0-2, 3-5, None Seen /HPF 12/12/2023 10:19 AM CDT [facility] BACTERIA Moderate(A ) None Seen, Rare, Few Bacteria/ HPF 12/12/2023 10:19 AM CDT [facility] EPITHELIAL CELLS Few None Seen, Few Epi/HPF 12/12/2023 10:19 AM CDT [facility] Urine URINE SPECIMEN / Unknown Non-Blood / Unknown 12/12/2023 10:08 AM CDT 12/12/2023 10:13 AM CDT Jessica Osman DO URINE [facility] [address] [place] [address], [place] [phone] * (ABNORMAL) URINE CULTURE (12/12/2023 10:08 AM CDT) CULTURE RESULT(A) 12/14/2023 2:31 PM CDT [facility] CULTURE >100,000 CFU/mL Klebsiella aerogenes (formerly Enterobacter aerogenes) 12/14/2023 2:31 PM CDT [facility] Comment: May develop resistance during prolonged therapy with 3rd-generation cephalosporins as a result of derepression of AmpC beta-lactamase. ??Therefore, isolates that are initially susceptible may become resistant within 3 to 4 days after initiation of therapy. ??Testing repeat isolates may be warranted. Oral cephalosporins are also not recommended. CULTURE 10,000-50,000 CFU/mL Multiple organisms probable contaminants 12/14/2023 2:31 PM CDT [facility] Urine URINE SPECIMEN / Unknown Non-Blood / Unknown 12/12/2023 10:08 AM CDT 12/12/2023 10:13 AM CDT Narrative Organism Antibiotic Method Susceptibility Klebsiella aerogenes (former ly Enterobacter aerogenes) TRIMETHOPRIM/SULF <=05/25: S Klebsiella aerogenes (former ly Enterobacter aerogenes) CEFAZOLIN >=32: R Klebsiella aerogenes (former ly Enterobacter aerogenes) GENTAMICIN <=1: S Klebsiella aerogenes (former ly Enterobacter aerogenes) CEFTRIAXONE <=0.25: S Comment:see organism -specific comment above Klebsiella aerogenes (former ly Enterobacter aerogenes) CEFTAZIDIME <=0.5: S Comment:see organism -specific comment above Klebsiella aerogenes (former ly Enterobacter aerogenes) LEVOFLOXACIN <=0.12: S Klebsiella aerogenes (former ly Enterobacter aerogenes) CIPROFLOXACIN <=0.06: S Klebsiella aerogenes (former ly Enterobacter aerogenes) PIPERACILLIN/TAZO <=4: S Klebsiella aerogenes (former ly Enterobacter aerogenes) CEFEPIME <=0.12: S Klebsiella aerogenes (former ly Enterobacter aerogenes) MEROPENEM <=0.25: S Klebsiella aerogenes (former ly Enterobacter aerogenes) NITROFURANTOIN 64: I Jessica Osman DO MICROBIOLOGY [facility] [address] [place] [address], * (ABNORMAL) UA W/ SEDIMENT EXAM REFLEXED PER CRITERIA (12/12/2023 10:08 AM CDT) COLOR Yellow Yellow Color 12/12/2023 10:19 AM CDT [facility] CLARITY Slightly Cloudy(A) Clear Clarity 12/12/2023 10:19 AM CDT [facility] SPECIFIC GRAVITY,URINE 1.020 1.010, 1.015, 1.020, 1.025 12/12/2023 10:19 AM CDT [facility] PH,URINE 7.5 6.0, 7.0, 8.0, 5.5, 6.5, 7.5, 8.5 12/12/2023 10:19 AM CDT [facility] UROBILINOGEN, QUALITATIVE Normal Normal EU/dl 12/12/2023 10:19 AM CDT [facility] PROTEIN, URINE Negative Negative mg/dL 12/12/2023 10:19 AM CDT [facility] GLUCOSE, URINE Negative Negative mg/dL 12/12/2023 10:19 AM CDT [facility] KETONES,URINE Negative Negative mg/dL 12/12/2023 10:19 AM CDT [facility] BILIRUBIN,URI NE Negative Negative 12/12/2023 10:19 AM CDT [facility] OCCULT BLOOD,URINE Trace(A) Negative 12/12/2023 10:19 AM CDT [facility] NITRITE Negative Negative 12/12/2023 10:19 AM CDT [facility] LEUKOCYTE ESTERASE Moderate(A) Negative 12/12/2023 10:19 AM CDT [facility] Urine URINE SPECIMEN / Unknown Non-Blood / Unknown 12/12/2023 10:08 AM CDT 12/12/2023 10:13 AM CDT Jessica Osman DO URINE [facility] [address] [place] [address], * (ABNORMAL) XR DXA BONE DENSITY 2 SITES AXIAL (03/19/2023 1:13 PM PSYCHOLOGIST EDUCATIONAL) Anatomical Region Laterality Modality Spine, HIPS, HIPL, HIPR Other Impressions 03/21/2023 4:22 PM PSYCHOLOGIST EDUCATIONAL Osteopenia. RECOMMENDATIONS: The National Osteoporosis Foundation recommends [...] recommended in 3-5 years. Juana Nielsen PA-C [facility] 03/21/2023 ?? Narrative 03/21/2023 4:22 PM PSYCHOLOGIST EDUCATIONAL For Patients: Results are automatically released to your [facility] ([employer]) account once available, in compliance with federal regulations. This means that you may see your results before your provider has had a chance to review them. Please allow 2-3 business days for your provider to comment on the results. XR DXA Bone Mineral Density (BMD) EXAM LOCATION: [address] [address] PATIENT NAME: Renay Jaeger DATE OF : 1950 EXAM DATE: 03/19/2023 REQUESTING PROVIDER: Jessica Osman, DO GENDER AT : female HEIGHT: 5' [...] two scanners are made by the same case advocate. PROCEDURE: Dual-energy x-ray absorptiometry performed with routine [...] W REFLEX MEASURED LDL (03/16/2023 1:40 PM PSYCHOLOGIST EDUCATIONAL) [facility] CHOLESTEROL,TOTAL 157 100 - 199 mg/dL 03/16/2023 9:23 PM PSYCHOLOGIST EDUCATIONAL [facility] Comment: Cholesterol, Total Reference Ranges Desirable <200 mg/dL Borderline 200-239 mg/dL High >=240 mg/dL TRIGLYCERIDES 92 <150 mg/dL 03/16/2023 9:23 PM PSYCHOLOGIST EDUCATIONAL [facility] HDL CHOLESTEROL 58 >40 mg/dL 9:[address] [facility] NON-HDL CHOLESTEROL 99 <145 mg/dl 03/16/2023 9:[address] [facility] CHOL/HDL RATIO 2.71 <4.50 03/16/2023 9:[address] [facility] LDL CHOLESTEROL 81 <=130 mg/dL 03/16/2023 9:23 PM PSYCHOLOGIST EDUCATIONAL [facility] VLDL CHOLESTEROL 18 <=30 mg/dL 03/16/2023 9:23 PM PSYCHOLOGIST EDUCATIONAL [facility] PROVIDER ORDERED STATUS RANDOM 03/16/2023 9:23 PM PSYCHOLOGIST EDUCATIONAL [facility] Blood BLOOD SPECIMEN / Unknown Venipuncture / Unknown 03/16/2023 1:40 PM PSYCHOLOGIST EDUCATIONAL 03/16/2023 1:40 PM PSYCHOLOGIST EDUCATIONAL Jessica Osman DO CHEMISTRY [facility] [address] [place] [address], * XR MAMMO STEPHEN BILAT SCREEN (06/22/2022 11:47 AM PSYCHOLOGIST EDUCATIONAL) Anatomical Region Laterality Modality BREASTS, Breast Left, Breast Right Bilateral Mammography Impressions 06/22/2022 4:00 PM PSYCHOLOGIST EDUCATIONAL ??There is no radiographic evidence for malignancy. ??Recommend annual mammograms. MAMMOGRAM ASSESSMENT: ??ACR 1 Negative PATIENTS: You will also receive a letter with your examination results in an easy to read format. ??If you have questions about your results, please contact your referring provider. Narrative 06/22/2022 4:00 PM PSYCHOLOGIST EDUCATIONAL For Patients: As a result of the Cures Act, medical imaging exams and procedure reports are released immediately into your electronic medical record. You may view this report before your referring provider. If you have questions, please contact your health care provider. XR MAMMO STEPHEN BILAT SCREEN [[id number]] CLINICAL HISTORY: ??This is an asymptomatic 71 y.o. patient. INDICATION FOR EXAM: Mammogram Screening. TECHNIQUE: CC & MLO views were obtained. ??This study was evaluated with the assistance of Computer-Aided Detection. Breast Tomosynthesis was used in interpretation. COMPARISON FILM: Yes 05/26/21 [facility] 05/25/20 [facility] FINDINGS: ??The breasts are almost entirely fatty. There are no dominant masses, suspicious micro calcifications or areas of architectural distortion. Jessicacarmen Osman DO MAMMO * ANTI HCV (12/26/2018 3:39 PM CDT) HEPATITIS C ANTIBODY Non-React virgil Non-React virgil 12/26/2018 7:53 PM CDT [facility] Comment:Antibodies to HCV no t detected; does not exclude the possibility of exposure to HCV. Blood BLOOD SPECIMEN / Unknown Venipuncture / Unknown 12/26/2018 3:39 PM CDT 12/26/2018 3:39 PM CDT Raquel KEENAN SEND OUTS [facility] [address] [place] [address], * COLONOSCOPY (12/08/2016 8:49 AM CDT) 12/08/2016 [...] adequate candidate for conscious sedation. The [id number] was passed through the anus and advanced [...] reponse to care. [facility] and nursing notes for moderate sedation details. Total physician intraservice time was 23 minutes. Lencho Mccormack MD 12/08/2016 10:08:02 AM This report has been signed electronically. Note Initiated On: 12/08/2016 8:49 AM Procedure Code(s): --- Professional --- 90580, Colonoscopy, flexible; diagnostic, including collection of specimen(s) bybrushing or washing, when performed (separateprocedure) Diagnosis Code(s): --- Professional --- Z86.010, Personal history of colonicpolyps Z98.0, Intestinal bypass and anastomosisstatus Q43.8, Other specified congenitalmalformations of intestine CPT copyright 2016 [employer]. All rights reserved. The codes documented in this report are preliminary and upon medical insurance coder reviewmay be revised to meet current compliance requirements. Scope In: 9:40:33 AM Scope Withdrawal Time 0 hours 9 minutes 38 seconds Scope Out: 10:01:37 AM Lencho Mccormack MD PROCEDURE ORD from Last 3 Months or Most Recently Relevant to Health Maintenance Advance Directives Documents on File Type Date Recorded Patient Decay Control Operator Expl anation Healthcare Directive 02/26/2014 3:27 PM [...] 10:16 AM 01/07/2015 7:10 PM Care Teams Uniform Designer Relationship Specialty Start Date End Date Jessica Osman DO [address] [place] [address] PCP - General Family Practice 01/25/22 Elaine Begum CNS Clinical Nurse Specialist 12/29/14
[2024-02-19] MEDS: SODIUM CHLORIDE 0.9 % (FLUSH) 10 ML SYRINGE IVF (06:15)
[2024-02-19] MEDS: LACTATED RINGERS 500 ML 500 ML 100 ML IV (07:18)
[2024-02-19] MEDS: CEFAZOLIN 2 GM INJ IVP (07:25)
--- NOTE | 2024-02-19 08:07 | W.ANESCHARGE ---
Anesthesia Charges Start Date/Time Anesthesia Start Date: 02/19/24 Anesthesia Start Time: 07:18 Stop Date/Time Anesthesia Stop Date: 02/19/24 Anesthesia Stop Time: 08:27 Summary Extremes of Age - Over 70 or under 1: MDA
[2024-02-19] MEDS: BUPIVACAINE 0.25% 30 ML INJECTION (08:15)
--- NOTE | 2024-02-19 08:17 | P.ORPRC_ITS ---
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 Operative intervention was recommended. The risks, benefits and expected outcomes were discussed in detail. These included but were not limited to: Infection, bleeding, injury to blood vessel or nerve, venous thromboembolism. All questions were answered to their sati sfaction. PROCEDURE: Spinal anesthesia was administered. The patient was placed supine on the operating room table. The left lower extremity was prepped and draped in the usual sterile fashion. The limb was exsanguinated with the Lencho bandage. The pneumatic tourniquet was inflated to 300 mmHg. A standard anterolateral portal was established. The arthroscope was introduced. The working portal was established anteromedially. Diagnostic arthroscopy was performed with findings as follows: The patellar component is intact with circumferential scarring surrounding it. The femoral component is normal, the tibial polyethylene is normal. The scarring posterior to ther patellar tendon was debrided with the radiofrequency probe and shaver. A superolateral portal was placed. Then we a ggressively debrided around the patellar component and posterior to the quads tendon with the shaver and radiofrequency probe. Arthroscopic instruments were removed, the portal sites were closed with a 3-0 nylon. Portals were injected with 0.25% Marcaine without epinephrine. A dry dressing was applied, the tourniquet was released. Sponge and needle counts were correct x 2. The patient tolerated the procedure well. There were no apparent complications. They were carefully transferred to the hospital bed and taken to the postanesthesia care unit in satisfactory condition. PLAN: The patient will be discharged to home. They may weightbear as tolerates. Range of motion will be unrestricted. They will follow up in the office in 2 weeks for a wound check and suture removal.
--- NOTE | 2024-02-19 08:29 | W.ANESCHARGE ---
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
== END 2024-02-19 10:25 | disposition home or self-care (01) ==
LOC: OR 05:55
PROVIDERS: PCP Family Medicine; Visit Provider Orthopaedic Surgery
PROC: (CPT 29870; principal; 2024-02-19 07:15)
DX: M25.862 Other specified joint disorders, left knee (principal); Z96.652 Presence of left artificial knee joint
CPT/HCPCS: 29877; 01400; 99100; J0665; J0690; J2250; J2405; J2704; J3010; J7120

== ENCOUNTER 2024-05-06 06:08 | Day surgery (SDC) | payer MEDICARE, BC, SELFPAY ==
[2024-05-06] VITALS (13 sets, daily range): BP systolic 122–142; BP diastolic 61–85; PULSE 66–84; RESP 16–20; TEMP 36.2–36.9; O2SAT 89–99; BMI 35.8
--- OUTSIDE RECORDS SUMMARY | 2024-05-06 06:11 | XMS_ITS | Data Portability ---
Author Organization [facility], [facility] Address [address] [place] [address] Care Team Providers Care Lactation Coordinator Name Role Phone [facility] Primary Care Provider Assessment No assessment recorded. Plan of Treatment Reminders Order Date Submit Date Provider Last Modified By Organization Details Last Modified Time Details Appointments None recorded. Lab urinalysis, dipstick 2021 022 [email or web address] [facility], [address], [address], [place], [address], 09:39:39 urinalysis, dipstick 2021 022 [email or web address] [facility], [address] [place] [address] [place], [address], 16:39:22 Referral None recorded. Procedures urodynamic testing, [...] , dipst ick Color-Status Yellow Not Available [facility] [address], [place], [address], 03/17/2022 09:39:14 03/17/20 22 03/17/2022 urina lysis , dipst ick Clarity-Stat us Slight ly Cloudy Not Available [facility] [address], [place], [address], 03/17/2022 09:39:14 03/17/20 22 03/17/2022 urina lysis , dipst ick pH-Status 7.0 Not Available [facility] [address], [place], [address], 03/17/2022 09:39:14 03/17/20 22 03/17/2022 urina lysis , dipst ick Leuko-Status Small Not Available [facility] [address], [place], [address], 03/17/2022 09:39:14 04/10/20 22 04/10/2022 urina lysis , dipst ick Color-Status Yellow Not Available [facility] [address], [place], [address], 04/10/2022 16:38:24 04/10/20 22 04/10/2022 urina lysis , dipst ick Clarity-Stat us Clear Not Available [facility] [address], [place], [address], 04/10/2022 16:38:24 04/10/20 22 04/10/2022 urina lysis , dipst ick Glucose-Stat us Negati ve Not Available [facility] [address], [place], [address], 04/10/2022 16:38:24 04/10/20 22 04/10/2022 urina lysis , dipst ick Bilirubin-St atus Negati ve Not Available [facility] [address], [place], [address], 04/10/2022 16:38:24 04/10/20 22 04/10/2022 urina lysis , dipst ick Ketones-Stat us Negati ve Not Available [facility] [address], [place], [address], 04/10/2022 16:38:24 04/10/20 22 04/10/2022 urina lysis , dipst ick Sp [place]-Stat us 1.015 Not Available [facility] [address], [place], [address], 04/10/2022 16:38:24 04/10/20 22 04/10/2022 urina lysis , dipst ick pH-Status 6.5 Not Available [facility] [address], [place], [address], 04/10/2022 16:38:24 04/10/20 22 04/10/2022 urina lysis , dipst ick Protein-Stat us 5.0 Not Available [facility] [address], [place], [address], 04/10/2022 16:38:24 04/10/20 22 04/10/2022 urina lysis , dipst ick Urobilinogen -Status 0.2 Not Available [facility] [address], [place], [address], 04/10/2022 16:38:24 04/10/20 22 04/10/2022 urina lysis , dipst ick Nitrates-Sta tus negati ve Not Available [facility] [address], [place], [address], 04/10/2022 16:38:24 04/10/20 22 04/10/2022 urina lysis , dipst ick Blood-Status Negati ve Not Available [facility] [address], [place], [address], 04/10/2022 16:38:24 04/10/20 22 04/10/2022 urina lysis , dipst ick Leuko-Status Small Not Available [facility] [address], [place], [address], 04/10/2022 16:38:24 04/10/20 22 04/10/2022 urina lysis , dipst ick Specimen Type Voided Not Available [facility] [address], [place], [address], 04/10/2022 16:38:24 03/21/20 22 03/17/2022 bladd er scan (PROC ) No observ ation record ed. BARCODE Not Available 2021 09:48:52 Result Notes None recorded. Problems Name Problem SNOMED Code Status Onset Date Resolution Date Notes Provider Name and Address Organization Details Recorded Time Recurrent urinary tract infection 842630539 Active 2021 Tanmay Sauceda MD [address] [place] [address], [address], [facility] 2 10:08:22 Mixed urinary incontinence 430234914 Active 2021 Tanmay Sauceda MD [address] [place] [address], [address], [facility] 2 10:08:29 Urge incontinence of urine 05835035 Active 2022 Tanmay Sauceda MD [address] [place] [address], [address], [facility] 3 14:59:17 Problem Notes None recorded. Procedures Surgical History Date Name Laterality Status Provider Name and Address Organization Details Recorded Time 04/10/20 22 Urodynamic Studies completed Ayla Diggs [facility] 04/12/2022 15:01:32 03/17/20 22 Cystoscopy- female completed Tanmay Sauceda MD [address], [place], [address], [facility] 03/17/2022 10:08:17 03/17/20 22 Bladder Scan completed Summer Santana [facility] 03/17/2022 09:37:49 03/17/20 17 Colonoscopy completed Summer Santana [facility] 03/17/2022 09:34:49 Total Hysterectomy completed Summer Santana [facility] 03/17/2022 09:34:57 Imaging Results Imaging Date Name Status LastModified by Organiz ation Details LastModified Time 03/17/2022 bladder scan (PROC) completed BARCODE Information not available 03/21/2022 09:48:52 Procedure Notes None recorded. Medical Equipment None Reported. Allergies Allergen ID Allergen Name Allergen Category Reaction Reaction Severity Criticality Documentation Date Start Date Code Code System Note Provider Name and Address Organization Details Recorded Time [id number] 35c0f gadodiami de medicatio n rash Not available Not available 03/17/2022 63074 RxNorm Not Available Not Available Not Available [id number] [id number] c2b23 Dilaudid medicatio n itching Not available Not available 03/17/2022 15732 3 RxNorm Not Available Not Available Not Available [id number] 117a9 Lunesta medicatio n cough Not available Not available 03/17/2022 89502 4 RxNorm Not Available Not Available Not Available [id number] 29b50 metoprolo l Not available other Not available Not available 03/17/2022 6918 RxNorm Fatig ue/sw eatin g Not Available Not Available Not Available [id number] [id number] js051t4y4 c2b23 acetamino phen / hydrocodo ne medicatio n itching Not available Not available 03/17/2022 18312 2 RxNorm Not Available Not Available Not Available Medications Name Sig Start Date Stop Date [...] Updated DateTime 03/17/2022 162.56 cm 29.2 kg/m2 64727.7 g Summer Santana [facility] 03/17/2022 09:32:27 Date Recorded Body height Provider Name an d Address Organization Details Last Updated DateTime 04/10/2022 162.56 cm Ayla Dontae [facility] 04/12/2022 14:49:58 Date Recorded Body height Body mass index (BMI) Body weight Provider Name and Address Organization Details Last Updated DateTime 07/28/2022 162.56 cm 29.2 kg/m2 02880.7 g Sadie Monge [facility] 07/28/2022 14:35:57 Social History Question Answer Notes LastModified by Organizat ion Details LastModified Time Tobacco Smoking Status [facility] 09:27:56 What Was The Date Of [...] available 2021 09:34:27 Medical History Condition Response Other N High Blood Pressure N Kidney Stones N Lung Disease N Depression Y GERD/Acid Reflux N Diabetes N Sexually Transmitted Infection N Bleeding Disorder N Cancer N High Cholesterol N Heart Disease Y Gynecological HistoryNo gynecological history recorded. Obstetrics History GPAL:G 0 P 0 0 0 0 Immunizations Vaccine Type Date Status Note Provider Nam e and Address Organization Details Recorded Time Pneumococcal conjugate PCV 13 6 completed Summer fong [facility] 03/17/2022 09:32:34 Influenza, split virus, trivalent, PF 9 completed Summer fong [facility] 03/17/2022 09:32:34 Influenza, split virus, trivalent, preservative 1 completed Summer fong [facility] 03/17/2022 09:32:34 Influenza, adjuvanted, trivalent, PF 8 she fong [facility] 03/17/2022 09:32:34 Influenza, split virus, quadrivalent, preservative 5 completed Summer fong [facility] 03/17/2022 09:32:34 zoster recombinant 9 she fong [facility] 03/17/2022 09:32:34 Influenza, high-dose, trivalent, PF 6 completed Summer Santana null, [facility] 03/17/2022 09:32:34 Influenza, split virus, trivalent, preservative 0 completed Summer Santana null, [facility] 03/17/2022 09:32:34 Influenza, split virus, trivalent, preservative 2 completed Summer Santana null, [facility] 03/17/2022 09:32:34 Influenza, split virus, trivalent, preservative 3 completed Summer Santana null, [facility] 03/17/2022 09:32:34 Influenza, adjuvanted, quadrivalent, PF 0 completed Summer Santana null, [facility] 03/17/2022 09:32:34 Influenza, split virus, trivalent, preservative 3 completed Summer Santana null, [facility] 03/17/2022 09:32:34 Influenza, adjuvanted, quadrivalent, PF 2 completed Summer Santana null, [facility] 03/17/2022 09:32:34 Influenza, high-dose, trivalent, PF 7 completed Summer Santana null, [facility] 03/17/2022 09:32:34 COVID-19, mRNA, LNP-S, PF, 30 mcg/0.3 mL dose 1 completed Summer Santana null, [facility] 03/17/2022 09:32:34 zoster live 2 completed Summer Santana null, [facility] 03/17/2022 09:32:34 COVID-19, mRNA, LNP-S, PF, 30 mcg/0.3 mL dose 1 completed Summer Santana null, [facility] 03/17/2022 09:32:34 COVID-19, mRNA, LNP-S, PF, 30 mcg/0.3 mL dose 1 completed Summer fong [facility] 03/17/2022 09:32:34 Influenza, split virus, trivalent, preservative 6 completed Summer fong [facility] 03/17/2022 09:32:34 pneumococcal polysaccharide PPV23 7 completed Summer fong [facility] 03/17/2022 09:32:34 Tdap 0 completed Summer ofng [facility] 03/17/2022 09:32:34 Novel Infvorcvp-[id number], all formulations 0 completed Summer fong [facility] 03/17/2022 09:32:34 Influenza, adjuvanted, quadrivalent, PF 1 completed Summer fong [facility] 03/17/2022 09:32:34 zoster recombinant 9 completed Summer fong [facility] 03/17/2022 09:32:34 Td (adult), 2 Lf tetanus toxoid, preservative free, adsorbed 9 completed Summer fong [facility] 03/17/2022 09:32:34 Influenza, high-dose, trivalent, PF 9 completed Summer fong [facility] 03/17/2022 09:32:34 Influenza, split virus, trivalent, preservative 4 [facility] 09:32:34 Past Encounters Encounter ID Performer Location Encounter Start Date Encounter Closed Date Diagnosis/Indication Diagnosis SNOMED-CT Code Diagnosis ICD10 Code [id number] MD RUTH [facility] [place] [address] [place] [address] 03/17/2022 09:03:31 03/21/2022 11:01:43 Recurrent urinary tract infection 458295364 N39.0 Mixed urin dmoinick incontinence 543766286 N39.46 [id number] [facility] [address] [place] [address] 04/10/2022 14:59:34 04/12/2022 10:33:12 Recurrent urinary tract infection 408505732 N39.0 Mixed urin dominick incontinence 218825895 N39.46 [id number] Tanmay Sauceda MD [facility] [address] [place] [address] 07/28/2022 14:32:43 08/05/2022 08:58:56 Urge incontinence of urine 45381178 N39.41 Health Concerns Section Related Observation LastModified by Organization Detai ls LastModified Time None Recorded Concern Status LastModified by Organization Details LastModified Time None Recorded Advance Directives Directive None Recorded Payers Encounter Date Sequence Insurance Name Policy Number Policy Delgado Covered Member ID Delgado Member ID Guarantor Name 03/17/2022 1 [place] Renay Jaeger [id number] Renay Jaeger 03/17/2022 1 [place] [id number] Renay Santosriel [id number] Renay Santosriel 04/10/2022 1 [place] [id number] Renay Jaeger [id number] Renay Santosriel 07/28/2022 1 [place] [id number] Renay Jaeger [id number] Renay [place] Notes Date Note Type Note Provider Name and Address Organization Details Recorded Time 03/17/2022 text/html New patient referred for incontinence and history [...] She had a mid urethral sling at [facility] 5 years ago but I do not have the clinic notes or operative reports available. She had temporary improvement in her incontinence but now has predominantly 2+ pad per day urge incontinence. There is a minor component of stress incontinence. She reports poor bladder awareness. Urinalysis today shows trace leukocytes, otherwise negative. Postvoid residual 0 mL. Tanmay Sauceda MD [address] [place] [address],[address], [place], [address], [facility] 03/17/2022 10:10:35 07/28/2022 text/html 03/17/22: New patient referred for incontinence and history of UTIs. I reviewed the most recent clinic notes from Dr. Jasper Snyder with [facility] dated 01/18/2022. [facility] culture on 03/01/2022 was negative, urine culture on 07/05/2021 showed pansensitive E. coli, and there are no other urine cultures dating back to the past 3 years. She reports symptoms of dysuria and frequency that did improve with the recent course of Keflex. At baseline, she has stress and urge incontinence. She had a mid urethral sling at [facility] 5 years ago but I do not [...] residual 0 mill. Tanmay Sauceda MD [address], [place], [address], [facility] 07/28/2022 15:00:15 OBGyn Episode No OBEpisode recorded.
[2024-05-06] MEDS: LACTATED RINGERS 1000 ML 1,000 ML 100 ML IV (06:50)
[2024-05-06] MEDS: SODIUM CHLORIDE 0.9 % (FLUSH) 10 ML SYRINGE IVF (06:59)
--- NOTE | 2024-05-06 07:15 | W.PM.H&PU ---
History & Physical Update History & Physical Update H&P Reviewed and patient assessed: No changes noted
--- NOTE | 2024-05-06 07:15 | PM.GSPRC ---
Operative Note Date of procedure: 05/06/24 Pre-op diagnosis: 1. Symptomatic enlarging supraumbilical/ventral hernia. Post-op diagnosis: 1. Main ventral hernia defect supraumbilically with an umbilical hernia defect and left lateral hernia defect. Type of Procedure: 1. Open ventral hernia repair with 8 x 12 cm mesh. Indications: 73-year-old female was seen in clinic for evaluation of supraumbilical bulge. This bulge has been present for many years and was noted to be there during sigmoidectomy in 2019. Patient stated that sometimes in the morning when she wakes up the bulge was firm to palpation. She had nausea when the bulge was firm. She was not sure of the bulge has increased in size but she stopped wearing jeans because it was bothering her bulge. On clinical exam superior to the umbilicus there was a peach sized bulge that was reducible when patient was lying down. This seemed to be larger during this consultation than when it was assessed 2 years ago. Patient had pain with reducing her bulge. Given patient's clinical history and the enlarging nature of her ventral hernia, open ventral hernia repair was recommended. The procedure was discussed in detail. The risks associated procedure including infection, bleeding, seroma, injury to intra-abdominal organs, the need for additional procedures, and hernia recurrence were all discussed with the patient, and she agreed to proceed. Procedure Description: After discussing the risks and benefits of the procedure, the patient signed informed consent.? The operative site was marked and the patient was brought to the operating room and placed on the operating table in supine position.? Care was taken to pad the patient's pressure points.?? The patient was then intubated by anesthesia.?? The operative site was then prepped and draped in the usual sterile fashion.? A time-out was then performed. A vertical supraumbilical incision was made with a scalpel. Subcutaneous fat was divided with cautery. The hernia sac was immediately identified supraumbilically and hernia sac was thin. No intra-abdominal structures were incarcerated in hernia sac. The anterior fascia was then grasped with Tung clamps and subfascial space was developed with cautery circumferentially. I stayed in the preperitoneal space, however, on the left side of the abdomen the peritoneum was tightly adherent to the posterior fascia and posterior fascia was mobilized to allow for sub fascial mesh placement. Multiple openings were created in the peritoneum during this dissection especially on the left side due to adhesions and those openings were closed with Vicryl sutures. Left inferior laterally colon was visualized through the peritoneal opening, and care was taken not to injure the colon whilel closing peritoneum. Hemostasis was achieved with cautery. An umbilical defect was also identified and preperitoneal fat was reduced from the defect. The umbilical defect was only 5 mm in diameter and was from the main defect by 5 mm fascial bridge. This fascial bridge was divided to create a common defect. Left laterally there was another 5 mm fascial opening with incarcerated preperitoneal fat. This preperitoneal fat was reduced into the preperitoneal space. The lateral fascial defect was then closed with interrupted 0-0 Nurolon sutures. The main fascial defect was approximately 4 x 5 cm. When adequate space was developed for mesh placement, I used Ventrio mesh 8 x 12 cm and placed it into preperitoneal space. The mesh was positioned to ensure that it overlapped left lateral fascial defect closed with Nurolon. The fascia was then secured in place with interrupted 0-0 Nurolon sutures. This closure was examined and fascia was tightly adherent to the mesh with no large openings for hernia recurrence. Local anesthetic was injected in the fascia and subcutaneous space. The fascia was then closed with a running 2-0 Vicryl suture over the mesh. Umbilicus was tacked down to the fascia with interrupted 3-0 Vicryl sutures. Subcutaneous fat was then reapproximated with interrupted 2-0 in 3-0 Vicryl sutures to minimize subcutaneous space. Dermis was reapproximated with interrupted 3-0 Vicryl sutures. The skin was closed with a running 4-0 Monocryl stitch. Steri-Strips and Sterile dressings were placed over the incision. All counts were correct at the end of the case. The patient was then woken and transported to the recovery area in stable condition. ? Findings: Main supraumbilical fascial defect with a small umbilical fascial defect and left lateral fascial defect. All 3 hernia defects were reinforced with the same mesh. Anesthesia: [facility] Surgeon: Jessica Bailey MD Estimated blood loss (mL): 10 Condition: stable Disposition: PACU
[2024-05-06] MEDS: CEFAZOLIN 2 GM INJ IVP (07:34)
[2024-05-06] MEDS: BUPIVACAINE 0.25% 30 ML 10 ML INJECTION (07:48)
[2024-05-06] MEDS: LIDOCAINE 1%-EPI 1:100,000 10 ML INFILTRATI (07:48)
--- NOTE | 2024-05-06 09:06 | SUR.OPER ---
PATIENT QUESTIONS ANSWERED SATISFACTORILY PREOPERATIVELY. PATIENT BROUGHT TO OR #1 PER CART. Patient positioned supine on OR #1 bed. The perioperative team supported arms bilaterally on arm boards. Final approval of positioning by surgeon. SURGEON DECLINES OFFER TO SEND EXCISED TISSUES TO PATHOLOGY.
--- NOTE | 2024-05-06 09:40 | P.ANES_ITS ---
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
[2024-05-06] MEDS: METOCLOPRAMIDE HCL 5 MG/ML INJ 10 MG IVP (09:51)
[2024-05-06] MEDS: fentaNYL 100 MCG/2 ML inj 50 MCG IVP (09:51)
== END 2024-05-06 11:13 | disposition home or self-care (01) ==
PROVIDERS: PCP Family Medicine; Visit Provider Surgery
PROC: (CPT 49593; principal; 2024-05-06 07:30)
DX: K43.9 Ventral hernia without obstruction or gangrene (principal); K42.9 Umbilical hernia without obstruction or gangrene
CPT/HCPCS: 49593; 00832; 99100; A4467; C1781; J0665; J0690; J1100; J1885; J2405; J2704; J2710; J2765; J3010; J3490; J7120

== ENCOUNTER 2024-09-12 06:28 | Outpatient (CLI) | payer MEDICARE, BC, SELFPAY ==
--- NOTE | 2024-09-12 07:43 | P.ANES_ITS ---
Anesthesia Charges Start Date/Time Anesthesia Start Date: 09/12/24 Anesthesia Start Time: 07:18 Stop Date/Time Anesthesia Stop Date: 09/12/24 Anesthesia Stop Time: 07:41 Coding CPT Codes CPT Codes: ANES LWR INTST SCR COLSC - 77013 ([id number]) P2 - PATIENT W/MILD SYST DISEASE, QK - SHIFT NURSE MANAGER 2-4 CNCRNT ANES PROC, QX - INDUSTRIAL ENG SVC W/ MD MED DIRECTION
--- NOTE | 2024-09-12 07:43 | W.ANESCHARGE ---
Anesthesia Charges Start Date/Time Anesthesia Start Date: 09/12/24 Anesthesia Start Time: 07:18 Stop Date/Time Anesthesia Stop Date: 09/12/24 Anesthesia Stop Time: 07:41 Coding CPT Codes CPT Codes: ANES LWR INTST SCR COLSC - 59008 ([id number]) P2 - PATIENT W/MILD SYST DISEASE, QK - HOME COORDINATOR 2-4 CNCRNT ANES PROC, QX - ENTRY LEVEL MARKETING ASSISTANT SVC W/ MD MED DIRECTION
--- NOTE | 2024-09-12 07:50 | P.ANES_ITS ---
Anesthesia Charges Start Date/Time Anesthesia Start Date: 09/12/24 Anesthesia Start Time: 07:18 Stop Date/Time Anesthesia Stop Date: 09/12/24 Anesthesia Stop Time: 07:41 Summary Extremes of Age - Over 70 or under 1: MDA Coding CPT Codes CPT Codes: ANES LWR INTST SCR COLSC - 97953 ([id number]) P2 - PATIENT W/MILD SYST DISEASE, QK - GAS DISTRIBUTION PLANT OPERATOR 2-4 CNCRNT ANES PROC, QX - DIRECTOR OF SURGERY SVC W/ MD MED DIRECTION Additional Codes: Summary - Extremes of Age - Over 70 or under 1: MDA ([id number])
--- NOTE | 2024-09-12 07:50 | W.ANESCHARGE ---
Anesthesia Charges Start Date/Time Anesthesia Start Date: 09/12/24 Anesthesia Start Time: 07:18 Stop Date/Time Anesthesia Stop Date: 09/12/24 Anesthesia Stop Time: 07:41 Summary Extremes of Age - Over 70 or under 1: MDA Coding CPT Codes CPT Codes: ANES LWR INTST SCR COLSC - 74601 ([id number]) P2 - PATIENT W/MILD SYST DISEASE, QK - [employer]PER[employer] 2-4 CNCRNT ANES PROC, QX - MANAGER [employer] SVC W/ MD MED DIRECTION Additional Codes: Summary - Extremes of Age - Over 70 or under 1: MDA ([id number])
== END 2024-09-12 06:29 | disposition home or self-care (01) ==
PROVIDERS: PCP Family Medicine; Visit Provider Internal Medicine Gastroenterology
DX: Z12.11 Encounter for screening for malignant neoplasm of colon (principal); Z86.0100 Personal history of colon polyps, unspecified; Z98.0 Intestinal bypass and anastomosis status
CPT/HCPCS: 00812; 45378; 99100; J2704